=== PATIENT | male | born 1930 | race Caucasian/White ===

== ENCOUNTER 2018-04-09 20:39 | Inpatient (IN) ==
--- NOTE | 2018-04-09 21:16 | Emergency Department Note ---
Disposition Clinical Impression: Sepsis Qualifiers: Sepsis type: sepsis due to unspecified organism Qualified Code(s): A41.9 - Sepsis, unspecified organism Pneumonia Qualifiers: Pneumonia type: due to unspecified organism Laterality: unspecified laterality Lung location: unspecified part of lung Qualified Code(s): J18.9 - Pneumonia, unspecified organism Leukocytosis Qualifiers: Leukocytosis type: unspecified Qualified Code(s): D72.829 - Elevated white blood cell count, unspecified Disposition: Admitted As Inpatient Condition: Fair [facility] Care Provider[facility] - Forms: ED Satisfaction Letter General Adult HPI - General Chief complaint: ED Shortness of Breath/Dyspnea Stated complaint: COPD rule out Sepsis Time Seen by Provider: 04/09/18 20:41 Source: EMS Mode of arrival: EMS Limitations: physical limitation, age Nursing Notes Reviewed: Yes Vital Signs Reviewed: Yes - History of Present Illness HPI Narrative: 88-year-old male 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 Reports 2 days of symptoms with cough and productive sputum. He was seen there noted to be tachycardic and febrile. His blood pressure was running on the lower sides he was sent here for evaluation. He reports he was last admitted in October for complications of COPD. He denies any chest pain. No history of DVT or PE. No recent steroid use. He reports fevers and chills at home. No other complaints. Pt Subjective Complaint: Sepsis Onset (ago): day(s) Pain Scale: 0 Consistency: constant Improves with: nothing Worsens with: nothing Associated symptoms: Reports: cough, fever/chills, shortness of breath Treatments Prior to Arrival: other (IV fluids, antibiotics) - Related Data Allergies Allergy/AdvReac Type Severity Reaction Status Date / Time Amoxicillin [From Augmentin] Allergy Unknown See Verified 04/09/18 21:10 Comments cefuroxime Allergy Unknown See Verified 04/09/18 21:10 Comments clavulanic acid Allergy Unknown See Verified 04/09/18 21:10 [From Augmentin] Comments ciprofloxacin [From Cipro] Allergy See Verified 04/09/18 21:10 Comments All systems ED: reviewed and negative except as stated. Constitutional: Reports: fever, chills, weakness Cardiovascular: Denies: chest pain Respiratory: Reports: cough, dyspnea, sputum production Gastrointestinal: Denies: nausea, vomiting Past Medical History - Past Medical History Attestation: Yes The following information was validated with the patient. Source: patient Medical history: Reports: arthritis, COPD, hyperlipidemia, TIA Psychiatric history: Reports: no psych history - Social History Smoking Status: Former smoker Smokeless Tobacco Status: No Alcohol use: Reports: none Drug use: Reports: none Physical Exam - General Limitations: physical limitation, age General appearance: alert, in no apparent distress - Head Head exam: atraumatic, normocephalic - Eye Eye exam: Present: normal appearance - ENT ENT exam: normal exam - Neck Neck exam: Present: normal inspection - Chest Chest inspection: Present: normal inspection, symmetric chest wall rise - Respiratory Respiratory exam: Present: other (Diminished breath sounds bilaterally) - Cardiovascular Cardiovascular exam: Present: normal rhythm, tachycardia, normal heart sounds - Abdominal Exam Abdominal exam: Present: soft, Non-Tender. Absent: tenderness, distention, rigidity - Extremities Exam Extremities exam: Present: normal inspection, full ROM - Expanded Upper Extremity Exam Shoulder exam: Present: normal inspection, full ROM Arm exam: Present: normal inspection, full ROM Elbow exam: Present: normal inspection, full ROM Forearm/Wrist exam: Present: normal inspection, full ROM Hand exam: Present: normal inspection, full ROM - Expanded Lower Extremity Exam Hip/Pelvis exam: Present: normal inspection, full ROM Upper leg exam: Present: normal inspection, full ROM Knee exam: Present: normal inspection, full ROM Lower leg exam: Present: normal inspection, full ROM Ankle exam: Present: normal inspection, full ROM Foot/toe exam: Present: normal inspection, full ROM - Skin Skin exam: Present: warm, dry Course Course Narrative: Patient seen and examined. Vital signs reviewed. Prior workup demonstrates a white count of 19, creatinine of 1.56. He was febrile there are 101.8 given Tylenol. He was also given Solu-Medrol, DuoNeb, IV fluid bolus as well as Zithromax. - Reevaluation(s) Reevaluation #1: Patient refuses to have CTA performed. We offered BiPAP as well as Ativan. He is adamant that he does not want to have a CT scan performed. Discussed that he could have a pulmonary embolism and that is what we are evaluating. We will also offer that he could be started on heparin and have a VQ scan later. The patient is agreeable with starting on heparin at this time. Vital Signs Temperature 98.7 F 04/09/18 20:58 Pulse Rate 101 04/09/18 20:58 Respiratory Rate 20 04/09/18 20:58 Blood Pressure 101/59 04/09/18 20:58 O2 Sat by Pulse Oximetry 93 04/09/18 20:58 Temperature 98.7 F 04/09/18 20:58 Pulse Rate 88 04/09/18 22:00 Respiratory Rate 20 04/09/18 22:00 Blood Pressure 113/52 04/09/18 22:00 O2 Sat by Pulse Oximetry 96 04/09/18 22:00 Oxygen Delivery Oxygen Delivery Nasal Cannula Medical Decision Making - MDM Narrative Medical decision making narrative: 88-year-old male presents from the [place] due to sepsis. Symptoms for a few days. Fluid responsive. Mentating appropriately. Source is likely pulmonary. However cannot exclude pulmonary embolism given his increased oxygen requirement and exam findings. The patient refused CT imaging. He will be heparinized in lieu of imaging at this time with VQ scan in the morning. Broad- spectrum antibiotic coverage with cultures pending. - Medical Records Medical records reviewed: Yes I reviewed the patient's medical records. - Lab Data Lab results reviewed: Yes I reviewed the patient's lab results. Result diagrams: 04/09/18 21:34 04/09/18 21:34 Lab Results 04/09/18 04/09/18 04/09/18 Range/Units 21:26 21:34 21:34 WBC 18.8 H (4.3-11.1) K/mcL RBC 4.37 (4.19-5.50) M/mcL Hgb 13.0 (12.9-16.9) g/dL Hct 40.5 (37.5-50.1) % MCV 92.7 (83.0-100.0) fL MCH 29.7 (28.0-33.3) pg MCHC 32.1 (31.6-35.5) g/dL RDW 12.8 (11.5-14.5) % Plt Count 239 (140-400) K/mcL MPV 10.2 (9.4-12.4) fL Immature Gran % 0.7 (0-4) % Seg Neutrophils % 96.0 % Lymphocytes % 1.3 % Monocytes % 1.8 % Eosinophils % 0.0 % Basophils % 0.2 % Neutrophils # 18.0 H (1.6-8.9) K/mcL Lymphocytes # 0.2 L (0.6-4.6) K/mcL Monocytes # 0.3 (0.0-1.3) K/mcL Eosinophils # 0.0 (0.0-0.6) K/mcL Basophils # 0.0 (0.0-0.2) K/mcL PT 12.2 H (9.4-12.1) Seconds INR 1.1 APTT 32.4 (26.0-36.0) Seconds Sodium (136-145) mEq/L Potassium (3.5-5.1) mEq/L Chloride (98-107) mEq/L Carbon Dioxide (23-29) mEq/L BUN (8-23) mg/dL Creatinine (0.70-1.30) mg/dL Est GFR ( Amer) (> 60) Est GFR (Non-Af Amer) (> 60) BUN/Creatinine Ratio (6-26) Glucose (70-105) mg/dL Calculated Osmolality (280-300) Lactic Acid 1.7 (0.5-2.2) mmol/L Calcium (8.6-10.3) mg/dL Phosphorus (2.7-4.5) mg/dL Magnesium (1.6-2.6) mg/dL Total Bilirubin (0.3-1.0) mg/dL Direct Bilirubin (0.0-0.2) mg/dL Indirect Bilirubin (0.0-1.2) mg/dL AST (13-39) Units/L ALT (7-52) Units/L Alkaline Phosphatase (34-104) Units/L Troponin I (< 0.04) ng/mL Serum Total Protein (6.4-8.9) g/dL Albumin (3.5-5.7) g/dL Globulin (2.4-3.5) g/dL Albumin/Globulin Ratio (1.1-2.2) 04/09/18 Range/Units 21:34 WBC (4.3-11.1) K/mcL RBC (4.19-5.50) M/mcL Hgb (12.9-16.9) g/dL Hct (37.5-50.1) % MCV (83.0-100.0) fL MCH (28.0-33.3) pg MCHC (31.6-35.5) g/dL RDW (11.5-14.5) % Plt Count (140-400) K/mcL MPV (9.4-12.4) fL Immature Gran % (0-4) % Seg Neutrophils % % Lymphocytes % % Monocytes % % Eosinophils % % Basophils % % Neutrophils # (1.6-8.9) K/mcL Lymphocytes # (0.6-4.6) K/mcL Monocytes # (0.0-1.3) K/mcL Eosinophils # (0.0-0.6) K/mcL Basophils # (0.0-0.2) K/mcL PT (9.4-12.1) Seconds INR APTT (26.0-36.0) Seconds Sodium 137 (136-145) mEq/L Potassium 4.6 (3.5-5.1) mEq/L Chloride 101 (98-107) mEq/L Carbon Dioxide 28 (23-29) mEq/L BUN 27 H (8-23) mg/dL Creatinine 1.41 H (0.70-1.30) mg/dL Est GFR ( Amer) 58 L (> 60) Est GFR (Non-Af Amer) 48 L (> 60) BUN/Creatinine Ratio 19 (6-26) Glucose 189 H (70-105) mg/dL Calculated Osmolality 294 (280-300) Lactic Acid (0.5-2.2) mmol/L Calcium 9.0 (8.6-10.3) mg/dL Phosphorus 2.5 L (2.7-4.5) mg/dL Magnesium 2.4 (1.6-2.6) mg/dL Total Bilirubin 0.5 (0.3-1.0) mg/dL Direct Bilirubin 0.2 (0.0-0.2) mg/dL Indirect Bilirubin 0.3 (0.0-1.2) mg/dL AST 14 (13-39) Units/L ALT 3 L (7-52) Units/L Alkaline Phosphatase 62 (34-104) Units/L Troponin I < 0.03 (< 0.04) ng/mL Serum Total Protein 6.9 (6.4-8.9) g/dL Albumin 3.7 (3.5-5.7) g/dL Globulin 3.2 (2.4-3.5) g/dL Albumin/Globulin Ratio 1.2 (1.1-2.2) - Radiology Data Radiology results reviewed: Yes I reviewed the patient's radiology results. - EKG Data EKG #1 EKG attestation: Yes I reviewed and interpreted this EKG. EKG results narrative: EKG demonstrates sinus rhythm with right bundle branch block with rate of 96 bpm. Normal axis. Prolonged QRS ration 144. Other intervals normal. Normal R -wave progression. No gross ST elevations or depressions. No acute ischemic findings. S.B.A.R. - S.B.A.REstee Situation: Demographics, MOA Background: Presenting Complaint, Relevant PMH, Meds, & Allergies Assessment: Vital Signs, Course and respsone to treatment, Exam Concerns, Patient/Family Expectation, Pertinant Lab Results, Outstanding Labs Recommendation: Barrier(s) to disposition, Recommendation based on pending studies, treatments, or consults S.B.A.REstee Report Given to: Dr. Tj AlvarezBEsteeADaniela Repor Time: 22:35 (Agrees that if the patient will not oblige for CT scan we can start heparin now and VQ scan in the morning.) Attestation Statement - Attestation Attestation: I examined this patient and my medical decision-making was reviewed with the Resident Physician. I agree with the documented findings, disposition and treatment plan as described except to the extent set forth below. Fever, hypotension, [facility] and underlying [facility]. They did start azithromycin. The patient does not hypotension, tachycardia, hypoxia. He has not had symptoms like he has had with his past pneumonia and [facility] was [facility]. I would at this point proceed with a CT angiography of the chest to exclude the possibility of pulmonary embolism which can sometimes have fever. Additionally I will like to rule out this out as the patient has respiratory alkalosis with low PaO2 and no evidence of abnormality on chest x-ray despite respiratory symptoms. The patient will be admitted for further management with initiation of broad- spectrum antibiotics I spent greater than 35 minutes of critical care time resuscitating this acutely ill patient suffering from dyspnea, hypotension, possible sepsis. This was excluding billable procedures.
[2018-04-09] MEDS ORDERED: Piperacillin/Tazobactam 3.375 GM in 0.9 % Sodium Chloride Mini Bag 100 ML IVPB ONE (21:20)
[2018-04-09] MEDS ORDERED: Isovue-370 500 ML INFUS..BTL IV ONE (21:29)
[2018-04-09 21:53] LABS: Basophils % 0.2 %; Hematocrit 40.5 % (37.5-50.1); Immature Granulocytes % 0.7 % (0-4); Lymphocytes # 0.2 K/mcL (0.6-4.6); Lymphocytes % 1.3 %; Mean Corpuscular HGB Conc 32.1 g/dL (31.6-35.5); Mean Corpuscular Hemoglobin 29.7 pg (28.0-33.3); Mean Corpuscular Volume 92.7 fL (83.0-100.0); Mean Platelet Volume 10.2 fL (9.4-12.4); Monocytes # 0.3 K/mcL (0.0-1.3); Monocytes % 1.8 %; Platelet Count 239 K/mcL (140-400); Red Blood Count 4.37 M/mcL (4.19-5.50); Red Cell Distribution Width 12.8 % (11.5-14.5)
[2018-04-09 21:56] LABS: INR 1.1; Prothrombin Time 12.2 Seconds (9.4-12.1)
[2018-04-09 21:59] LABS: Activated Partial Thrombo Time 32.4 Seconds (26.0-36.0)
[2018-04-09 22:09] LABS: Alanine Aminotransferase 3 Units/L (7-52); Albumin 3.7 g/dL (3.5-5.7); Albumin/Globulin Ratio 1.2 (1.1-2.2); Alkaline Phosphatase 62 Units/L (34-104); Aspartate Amino Transferase 14 Units/L (13-39); BUN/Creatinine Ratio 19 (6-26); Bilirubin,Direct 0.2 mg/dL (0.0-0.2); Bilirubin,Indirect 0.3 mg/dL (0.0-1.2); Bilirubin,Total 0.5 mg/dL (0.3-1.0); Blood Urea Nitrogen 27 mg/dL (8-23); Carbon Dioxide 28 mEq/L (23-29); Chloride 101 mEq/L (98-107); Globulin 3.2 g/dL (2.4-3.5); Glucose 189 mg/dL (70-105); Magnesium 2.4 mg/dL (1.6-2.6); Osmolality,Calculated 294 (280-300); Phosphorous 2.5 mg/dL (2.7-4.5); Potassium 4.6 mEq/L (3.5-5.1); Sodium 137 mEq/L (136-145); Total Protein 6.9 g/dL (6.4-8.9); Troponin I < 0.03 ng/mL (< 0.04); eGFR For Non-African Americans 48 (> 60)
[2018-04-09] MEDS ORDERED: *HR* Heparin 5,000 UNIT/ML VIAL IVP PRN ×2 (22:33)
[2018-04-09] MEDS ORDERED: *HR* Heparin 5,000 UNIT/ML VIAL IVP ONE (22:33)
[2018-04-09] MEDS ORDERED: Heparin 25,000 UNIT/500 ML D5W 25,000 UNIT/500 ML BAG IVC SCH (22:45)
[2018-04-09] MEDS ORDERED: 0.9 % Sodium Chloride 1,000 ML IVC SCH (23:45)
[2018-04-09] MEDS ORDERED: Naloxone 0.4 MG/ML INJ IVP PRN (23:53)
--- NOTE | 2018-04-10 00:26 | Internal Med History&Physical ---
Date of Encounter: 04/09/18 Time of Encounter: 23:45 Internal Medicine - H&P: HPI Chief complaint: SOB History of present illness: Mr. Hu is a 88 year old male with past medical history of oxygen dependent COPD, TIA, hyperlipidemia, presented to the outside hospital ED with 2 day history of shortness of breath. Associated with mild cough with brownish sputum. He states that he also had fever of 102 at home prior to the presentation. He was first seen at the [facility] and was told that he was febrile and hypotensive. CXR there did not show any acute pathology and ABG showed hypoxia and respiratory alkalosis (don't have the documents to be reviewed at the time of my interview). He was apparently given azithromycin and transferred to the [facility] emergency department. In our ED, he was afebrile and hemodynamically stable, saturating 96% on 3 L of oxygen. Labs showed leukocytosis of 18.8 and creatinine of 1.41 (unknown baseline). Troponin negative, EKG sinus rhythm with right bundle branch block without ST elevation. When he was examined here, he did not have any wheezes and had good air entry bilaterally. Given the lack of wheezing on exam nor consolidation on CXR, in addition to hypoxia and respiratory alkalosis, CT angio was suggested to rule out PE but patient could not tolerate it due to his inability to lay flat due to SOB (which is not new). He therefore refused it and the decision was made to empirically start him on heparin gtt and maybe obtain VQ scan. Past Med Surg Social Fam HX - Past Medical History Attestation: Yes The following information was validated with the patient. Medical history: arthritis, COPD, hyperlipidemia Additional medical history: Pulmonary Htn, BPH, Right BBB Psychiatric history: no psych history - Social History Smoking Status: Former smoker Smokeless Tobacco Status: No Alcohol use: none Drug use: none Internal Medicine - H&P: Meds 3 Allergy/AdvReac Type Severity Reaction Status Date / Time Amoxicillin [From Augmentin] Allergy Unknown See Verified 04/09/18 21:10 Comments cefuroxime Allergy Unknown See Verified 04/09/18 21:10 Comments clavulanic acid Allergy Unknown See Verified 04/09/18 21:10 [From Augmentin] Comments ciprofloxacin [From Cipro] Allergy See Verified 04/09/18 21:10 Comments All Systems PM: A 10-system review of systems was performed and is negative for pertinent findings except as documented above in the HPI. - Constitutional Vitals: Temp Pulse Resp BP Pulse Ox 98.7 F 84 20 121/64 97 04/09/18 20:58 04/09/18 23:32 04/09/18 23:32 04/09/18 23:32 04/09/18 23:32 Exam: General: Alert and oriented, mild distress HEENT:EOM, pupils equal, round, and reactive. Cardiovascular:Normal S1 & S2, no murmurs or gallops. No JVD. Pulse regular. Lungs:Normal breath sounds, no wheezes or crackles. Abdomen:Soft, non-tender, no rigidity. Extremities:No deformity, no edema or tenderness, no joint swelling. Neurological:Normal cognition and motor skills. Skin:Normal color, no rash, no lesions. Pulses:Carotid and radial pulses normal +2. Rest of the physical exam is non-contributory Internal Med - H&P Results - Labs CBC & Chem 7: 04/09/18 21:34 04/09/18 21:34 - Assessment and plan (1) Acute respiratory failure with hypoxia Current Visit: Yes Status: Acute Assessment and plan: Etiology unclear X-ray did not show any evidence of pneumonia, no wheezing on physical exam. ABG at the outside hospital reportedly showed hypoxia with respiratory alkalosis (not available for review) Was given azithromycin at the outside hospital ED followed by Miguel Angel here Refused CT scan due to inability to lay flat. He also has VITALIY, if not CKD WIll try to obtain the record from [place] -> if not available, will at least repeat CXR Started on heparin drip in the ER, will continue VQ scan and echocardiogram tomorrow Further abx course to be decided tomorrow depending on his clinical response (2) VITALIY (acute kidney injury) Current Visit: Yes Status: Acute Assessment and plan: Unclear whether he has VITALIY or CKD IVF tonight (3) COPD (chronic obstructive pulmonary disease) Current Visit: Yes Status: Acute Assessment and plan: Does not seem to be in exacerbation. He states that he usually presents with cough and yellowish-greenish sputum production which was different this time Resume home inhalers when reconciled when necessary DuoNeb Qualifiers: COPD type: unspecified COPD Qualified Code(s): J44.9 - Chronic obstructive pulmonary disease, unspecified (4) DVT prophylaxis Current Visit: Yes Status: Acute Assessment and plan: On heparin drip as above - Time Spent With Patient Total time spent is greater than 50% in coordination of care (as documented) at patient's floor/unit and/or counseling patient:
[2018-04-10] MEDS: Ipratropium/Albuterol Neb 3 ML IH PRN ×2 (00:53→07:46)
[2018-04-10 03:04] LABS: Bilirubin,Urine Negative (Negative); Blood,Urine Negative (Negative); Clarity,Urine Clear (Clear); Color,Urine Yellow (Yellow); Glucose,Urine (UA) Normal (Normal); Ketones,Urine 40 mg/dL (Negative); Leukocyte Esterase,Urine Negative (Negative); Nitrite,Urine Negative (Negative); Protein,Urine 30 mg/dL (Neg-Trace); Specific Gravity,Urine 1.025 (1.010-1.025); Urobilinogen,Urine Normal (Normal)
[2018-04-10 03:05] LABS: Bacteria,Urine None Seen per hpf (None-Few); Hyaline Casts,Urine None Seen per lpf (None-Few); Squamous Epithelial Cell,Urine Moderate per lpf (None-Few); WBC,Urine 0-3 per hpf (0-3)
[2018-04-10] MEDS ORDERED: Melatonin 3 MG TABLET PO ONE (04:04)
[2018-04-10 04:47] LABS: Basophils % 0.1 %; Hemoglobin 12.5 g/dL (12.9-16.9); Immature Granulocytes % 0.6 % (0-4); Lymphocytes # 0.5 K/mcL (0.6-4.6); Lymphocytes % 3.7 %; Mean Corpuscular HGB Conc 32.1 g/dL (31.6-35.5); Mean Corpuscular Hemoglobin 29.8 pg (28.0-33.3); Mean Corpuscular Volume 92.9 fL (83.0-100.0); Mean Platelet Volume 10.3 fL (9.4-12.4); Monocytes # 0.2 K/mcL (0.0-1.3); Monocytes % 1.1 %; Neutrophils # 13.2 K/mcL (1.6-8.9); Platelet Count 249 K/mcL (140-400); Red Cell Distribution Width 12.9 % (11.5-14.5); Segmented Neutrophils % 94.5 %
[2018-04-10 05:09] LABS: BUN/Creatinine Ratio 21 (6-26); Blood Urea Nitrogen 24 mg/dL (8-23); Calcium 8.8 mg/dL (8.6-10.3); Carbon Dioxide 29 mEq/L (23-29); Chloride 100 mEq/L (98-107); Glucose 168 mg/dL (70-105); Osmolality,Calculated 290 (280-300); Potassium 4.3 mEq/L (3.5-5.1); Sodium 136 mEq/L (136-145); eGFR For Non-African Americans > 60 (> 60)
[2018-04-10] MEDS: Tiotropium 18 MCG inhalation IH SCH ×2 (07:46→07:59)
[2018-04-10] MEDS: Budesonide/Formoterol 160/4.5 MDI IH SCH ×2 (07:46→20:55)
[2018-04-10] MEDS ORDERED: Piperacillin/Tazobactam 3.375 GM in 0.9 % Sodium Chloride Mini Bag 100 ML IVPB SCH (08:00)
[2018-04-10] MEDS ORDERED: GI Cocktail 40 ML EACH PO STA (09:33)
[2018-04-10] MEDS ORDERED: Ipratropium/Albuterol Neb 3 ML IH STA (09:37)
[2018-04-10] MEDS ORDERED: Albuterol 2.5 MG/3 ML NEBULIZER IH PRN (09:39)
[2018-04-10] MEDS ORDERED: Acetylcysteine 10% 2 ML INHSOL IH SCH (09:45)
[2018-04-10] MEDS ORDERED: Famotidine 20 MG TABLET PO SCH (09:45)
[2018-04-10] MEDS: Cholecalciferol (D-3) 1,000 UNIT TABLET PO SCH (09:50)
[2018-04-10] MEDS: Finasteride 5 MG TABLET PO SCH (09:50)
[2018-04-10] MEDS: Aspirin Enteric Coated 81 MG Tablet PO SCH (09:50)
[2018-04-10] MEDS: [UNRECOGNIZED DRUG - OTHER] PO SCH ×3 (09:54→21:55)
[2018-04-10] MEDS: Loratadine 10 MG TABLET PO SCH (10:36)
[2018-04-10] MEDS: Ipratropium/Albuterol Neb 3 ML IH SCH ×3 (11:29→20:54)
[2018-04-10] MEDS: Acetylcysteine 10% 2 ML INHSOL IH SCH ×2 (15:47→20:55)
--- NOTE | 2018-04-10 16:31 | Electrocardiograph Report ---
[place] [address] Test Date: 2018-04-09 Pat Name: Dru Hu Department: 104 Room: [facility] Gender: M Mason Helper: ROSANGELA : 1930 Requested By: Robert Jameson Order Number: [id number] Reading MD: Echo Pelaez Measurements Intervals [place] Rate: 96 P: 33 NM: 162 QRS: 82 QRSD: 144 T: 41 QT: 362 QTc: 415 Interpretive Statements SINUS RHYTHM WITH OCCASIONAL SUPRAVENTRICULAR PREMATURE COMPLEXES RIGHT BUNDLE BRANCH BLOCK Electronically Signed On 04-10-2018 16:29:16 EDT by Echo Pelaez
[2018-04-10] MEDS ORDERED: Azithromycin 500 MG in D5% in Water 250 ML IVPB SCH (17:00)
[2018-04-10] MEDS ORDERED: GI Cocktail 40 ML EACH PO PRN (17:35)
--- NOTE | 2018-04-10 17:42 | Internal Med Progress Note ---
Hospitalist Progress Note - Encounter Date of Encounter: 04/10/18 Time of Encounter: 17:39 - Subjective Interval History: Patient had no acute events overnight. Nursing staff reports that he is coughing up phlegm better now. Patient states that his breathing is "much better." He is now back down to home supplemental oxygen 2L NC. He denies any fever, chills, chest pain, SOB, nausea, vomiting, or abdominal pain. He had some minor heartburn after eating ziegler from breakfast, but it is now better with famotidine and GI cocktail. He has no other complaints at this time. - Exam Vitals: Temp Pulse Resp BP Pulse Ox 97.8 F 83 16 121/58 95 04/10/18 15:27 04/10/18 15:27 04/10/18 15:49 04/10/18 15:27 04/10/18 15:49 Exam: Gen - Awake, alert, no acute distress HEENT - NCAT, PERRLA, EOMI, hearing grossly intact, oropharynx benign CV - RRR, normal S1 and S2, no M/R/G, no BLE edema Resp - Normal WOB, CTAB, no W/R/R GI - Soft, NT/ND, no masses, normal bowel sounds, no HSP Skin - Warm, dry, no rashes/lesions/ulcers Psych - Normal mood and affect, no depression or anxiety - Assessment and Plan (1) Acute respiratory failure with hypoxia Current Visit: Yes Status: Resolved Assessment and Plan: Etiology unclear X-ray did not show any evidence of pneumonia, no wheezing on physical exam. ABG at the outside hospital reportedly showed hypoxia with respiratory alkalosis (not available for review) Was given azithromycin at the outside hospital ED followed by Miguel Angel here Refused CT scan due to inability to lay flat. He also has VITALIY, if not CKD WIll try to obtain the record from [place] -> if not available, will at least repeat CXR Started on heparin drip in the ER, will continue VQ scan and echocardiogram tomorrow Further abx course to be decided tomorrow depending on his clinical response 04/10 - Acute respiratory failure resolved. Now back to home supplemental oxygen 2L NC for chronic respiratory failure. Likely secondary to pneumonia. Treating pneumonia with antibiotics as per below. Patient declines V/Q scan and ECHO as he is unable to lie flat. My suspicion for PE is low, so will discontinue heparin drip and see how he does overnight. If WBC continues to trend down, and he improves overnight with antibiotics and without anticoagulation, will plan to discharge home tomorrow with PO antibiotic course. I have consulted pharmacy to help determine PO antibiotic course given patient's multiple antibiotic allergies. (2) Pneumonia Current Visit: Yes Status: Acute Assessment and Plan: Continue IV azithromycin and IV zosyn. Added guaifenesin, claritin, and inhaled mucomyst to help with expectoration. Pharmacy consulted to help determine appropriate discharge antibiotics. (3) VITALIY (acute kidney injury) Current Visit: Yes Status: Resolved Assessment and Plan: Unclear whether he has VITALIY or CKD IVF tonight 04/10 - Resolved. Discontinue IVF. Encourage adequate PO hydration. Recheck BMP in AM. (4) COPD (chronic obstructive pulmonary disease) Current Visit: Yes Status: Chronic Assessment and Plan: Does not seem to be in exacerbation. He states that he usually presents with cough and yellowish-greenish sputum production which was different this time Resume home inhalers when reconciled when necessary DuoNeb 04/10 - I agree that he is not in acute exacerbation. Continue scheduled duonebs and home inhalers. (5) Heartburn Current Visit: Yes Status: Acute Assessment and Plan: Start famotidine scheduled and GI cocktail PRN. (6) DVT prophylaxis Current Visit: Yes Status: Acute Assessment and Plan: Discontinue heparin drip. Start SCDs and lovenox 40 mg SQ QD. - Time Spent with Patient Total time spent is greater than 50% in coordination of care (as documented) at patient's floor/unit and/or counseling patient: less than 15 minutes Plan of Care Discussed with: patient (Family, Nurse) Internal Medicine: Result - Labs CBC & Chem 7: 04/10/18 04:13 04/10/18 04:13 - ABG Interpretation ABG results: PT/INR, D-dimer PT 12.2 Seconds (9.4-12.1) H 04/09/18 21:34 Consult Discharge Plan - Plan [facility]errals: [facility] [Primary Care Provider] - (2) Pneumonia Qualifiers: Pneumonia type: due to unspecified organism Laterality: unspecified laterality Lung location: unspecified part of lung Qualified Code(s): J18.9 - Pneumonia, unspecified organism (4) COPD (chronic obstructive pulmonary disease) Qualifiers: COPD type: unspecified COPD Qualified Code(s): J44.9 - Chronic obstructive pulmonary disease, unspecified
[2018-04-10] MEDS: Piperacillin/Tazobactam 3.375 GM in 0.9 % Sodium Chloride Mini Bag 100 ML IVPB SCH (18:11)
[2018-04-10] MEDS: Famotidine 20 MG TABLET PO SCH (21:55)
[2018-04-11] MEDS: Piperacillin/Tazobactam 3.375 GM in 0.9 % Sodium Chloride Mini Bag 100 ML IVPB SCH (02:44)
[2018-04-11] MEDS: Acetylcysteine 10% 2 ML INHSOL IH SCH ×2 (03:46→10:57)
[2018-04-11] MEDS: Ipratropium/Albuterol Neb 3 ML IH SCH ×2 (03:46→10:57)
[2018-04-11 05:32] LABS: Basophils % 0.1 %; Eosinophils % 0.2 %; Hemoglobin 11.7 g/dL (12.9-16.9); Immature Granulocytes % 0.6 % (0-4); Lymphocytes # 1.2 K/mcL (0.6-4.6); Lymphocytes % 10.5 %; Mean Corpuscular HGB Conc 32.5 g/dL (31.6-35.5); Mean Corpuscular Hemoglobin 29.8 pg (28.0-33.3); Mean Corpuscular Volume 91.6 fL (83.0-100.0); Mean Platelet Volume 10.2 fL (9.4-12.4); Monocytes # 0.8 K/mcL (0.0-1.3); Monocytes % 7.1 %; Platelet Count 281 K/mcL (140-400); Red Blood Count 3.93 M/mcL (4.19-5.50); Red Cell Distribution Width 12.7 % (11.5-14.5); Segmented Neutrophils % 81.5 %
[2018-04-11] MEDS: *HR* Enoxaparin 40 MG/0.4 ML SYRINGE SQ SCH ×2 (05:46→05:52)
[2018-04-11 05:47] LABS: BUN/Creatinine Ratio 24 (6-26); Blood Urea Nitrogen 21 mg/dL (8-23); Calcium 8.6 mg/dL (8.6-10.3); Carbon Dioxide 28 mEq/L (23-29); Chloride 102 mEq/L (98-107); Glucose 102 mg/dL (70-105); Osmolality,Calculated 285 (280-300); Potassium 4.3 mEq/L (3.5-5.1); Sodium 136 mEq/L (136-145); eGFR For Non-African Americans > 60 (> 60)
[2018-04-11 07:29] VITALS: BP 100/60
--- NOTE | 2018-04-11 09:21 | Discharge Summary ---
- NOTES TO OUTPATIENT PROVIDER Notes to Outpatient Provider: Follow up with PCP in 2-3 days after discharge. Recheck BMP and CBC at that time. Date of Encounter: 04/11/18 Time of Encounter: 09:18 - Discharge Diagnosis (1) Acute respiratory failure with hypoxia Priority: Primary Status: Resolved (2) Pneumonia Priority: Secondary Status: Acute Qualifiers: Pneumonia type: due to unspecified organism Laterality: unspecified laterality Lung location: unspecified part of lung Qualified Code(s): J18.9 - Pneumonia, unspecified organism (3) VITALIY (acute kidney injury) Priority: Secondary Status: Resolved (4) COPD (chronic obstructive pulmonary disease) Priority: Secondary Status: Chronic Qualifiers: COPD type: unspecified COPD Qualified Code(s): J44.9 - Chronic obstructive pulmonary disease, unspecified (5) Heartburn Priority: Secondary Status: Acute (6) DVT prophylaxis Priority: Secondary Status: Acute Hospital course: Mr. Hu is a 88 year old male admitted for acute on chronic respiratory failure likely secondary to pneumonia. Patient was admitted to general medical floor with telemetry. He was started on IV azithromycin and IV zosyn due to multiple antibiotic allergies. He was given claritin, guaifenesin, and inhaled mucomyst to aid expectoration. His condition improved overnight and he was weaned to home 2L NC. Pharmacist recommended discharge on azithromycin and bactrim SS for total 7 days. He had mild VITALIY upon admission that resolved with IVF. He had some mild heartburn that resolved with famotidine and GI cocktail. Today, he feels much better. He will follow up with PCP in 2-3 days after discharge. BMP and CBC can be rechecked at that time. Patient has met maximum benefit of this hospitalization and will be discharged home in stable condition. Discharge discussed with: patient, nurse, other (Pharmacist) - Time Spent with Patient Total time spent providing and/or coordinating discharge services: Greater than 30 minutes - Discharge Medications Prescriptions: Azithromycin [Zithromax Tri-Rudy] 500 mg PO DAILY 5 Days #5 tablet GuaiFENesin ER [Mucinex] 1,200 mg PO BID 7 Days #14 tbbp.12hr Loratadine [Claritin] 10 mg PO DAILY 7 Days #7 tablet Sulfamethoxazole/Trimeth SS [Bactrim SS] 1 each PO BID 6 Days #11 tablet Home Medications: Albuterol Neb [Proventil Neb] 2.5 mg IH Q4HR PRN 04/10/18 [History] Albuterol Sulfate [Albuterol Inhaler] 2 puff IH Q6HR PRN 04/10/18 [History] Aloe Vera 10,000 mg PO BID 04/10/18 [History] Aspirin [Lo-Dose Aspirin EC] 81 mg PO DAILY 04/10/18 [History] Budesonide/Formoterol 160/4.5 [Symbicort 160/4.5] 2 puff IH BIDR 04/10/18 [ History] Calcium Carbonate [Calcium] 500 mg PO BID 04/10/18 [History] Calcium Carbonate [Calcium] 500 mg PO BID PRN 04/10/18 [History] Cholecalciferol (D-3) [Vitamin D] 5,000 unit PO DAILY 04/10/18 [History] Finasteride [Proscar] 5 mg PO DAILY 04/10/18 [History] Furosemide [Lasix] 20 mg PO DAILY 04/10/18 [History] Lung Support 650 mg PO TID 04/10/18 [History] Potassium Chloride [K-Tab ER] 20 meq PO DAILY 04/10/18 [History] Prostate 9 Complex 1 tab PO DAILY 04/10/18 [History] Sodium Chloride for inhalation [Sodium Chloride, Saline 15 Ml 15 Ml] 2 spr NS TID 04/10/18 [History] Tamsulosin [Flomax] 0.4 mg PO DAILY 04/10/18 [History] Tiotropium [Spiriva] 18 mcg IH 0700 04/10/18 [History] Vitamin E Acid Succinate [Vitamin E] 400 units PO DAILY 04/10/18 [History] Azithromycin [Zithromax Tri-Rudy] 500 mg PO DAILY 5 Days #5 tablet 04/11/18 [Rx] GuaiFENesin ER [Mucinex] 1,200 mg PO BID 7 Days #14 tbbp.12hr 04/11/18 [Rx] Loratadine [Claritin] 10 mg PO DAILY 7 Days #7 tablet 04/11/18 [Rx] Sulfamethoxazole/Trimeth SS [Bactrim SS] 1 each PO BID 6 Days #11 tablet [Rx] Allergies/Adverse Reactions: 3 Allergy/AdvReac Type Severity Reaction Status Date / Time Amoxicillin [From Augmentin] Allergy Unknown See Verified 04/10/18 14:22 Comments cefuroxime Allergy Unknown See Verified 04/10/18 14:22 Comments clavulanic acid Allergy Unknown See Verified 04/10/18 14:22 [From Augmentin] Comments ciprofloxacin [From Cipro] Allergy See Verified 04/10/18 14:22 Comments Date of admission: 04/10/18 10:16 [facility] care physician: [facility] Consults: 04/11/18 08:11 Consult for Pharmacy Education [CONS] Stat Reason for Consult: Please call MD for antibiotic selection. Thanks. Call Completed: No Discharging clinician: Dawit Duggan Anticipated date of discharge: 04/11/18 - Constitutional Vitals: Temp Pulse Resp BP Pulse Ox 97.6 F 83 16 100/60 99 04/11/18 07:27 04/11/18 07:27 04/11/18 07:27 04/11/18 07:27 04/11/18 07:27 General appearance: Present: cooperative, A&O X 3, pleasant, no acute distress, obese, answers questions appropriately - Respiratory Respiratory exam: Present: CTAB. Absent: accessory muscle use, rales, rhonchi, wheezes Additional comments: Normal WOB - Cardiovascular Cardiovascular exam: Present: RRR, +S1, +S2. Absent: diastolic murmur, gallop, rubs, systolic murmur Additional comments: No BLE edema - GI/Abdominal GI/Abdominal exam: Present: normal bowel sounds, soft. Absent: distended, hepatomegaly, mass, splenomegaly, tenderness - Psychiatric Psychiatric exam: Present: normal affect, normal mood. Absent: agitated, anxious, depressed - Skin Skin exam: Present: dry, intact, warm. Absent: cyanosis, erythema, rash - Patient Status Disposition: Home, Self-Care Condition: Good Overall status at discharge: patient is progressing back to baseline - Discharge Instructions Follow Up With: [facility],PCP [Primary Care Provider] - Additional Instructions: Follow up with PCP in 2-3 days after discharge. Recheck BMP and CBC at that time. - Diet and Activity Activity: resume usual activities as tolerated Diet: low fat, low cholesterol, low salt diet, other (Cardiac Diet)
[2018-04-11] MEDS: Finasteride 5 MG TABLET PO SCH (09:58)
[2018-04-11] MEDS: Aspirin Enteric Coated 81 MG Tablet PO SCH (09:59)
[2018-04-11] MEDS: Cholecalciferol (D-3) 1,000 UNIT TABLET PO SCH (09:59)
[2018-04-11] MEDS: Loratadine 10 MG TABLET PO SCH (09:59)
[2018-04-11] MEDS: Famotidine 20 MG TABLET PO SCH (09:59)
[2018-04-11] MEDS: [UNRECOGNIZED DRUG - OTHER] PO SCH (10:00)
[2018-04-11] MEDS: Budesonide/Formoterol 160/4.5 MDI IH SCH (10:57)
[2018-04-11] MEDS: Tiotropium 18 MCG inhalation IH SCH (11:01)
== END 2018-04-11 12:09 | disposition home or self-care (01) | DRG 189 ==
LOC: EMEROO 20:39 → 2NENU 20:39 → MERGE 04-10 10:16
PROVIDERS: ADMIT Family Medicine; ATTEND Family Medicine

== ENCOUNTER 2018-07-26 13:32 | Inpatient (IN) ==
[2018-07-26] MEDS ORDERED: Nitroglycerin 0.4 MG TAB.SUBL SL ONE (13:39)
[2018-07-26] MEDS ORDERED: Aspirin 81 MG TAB.CHEW PO ONE (13:39)
--- NOTE | 2018-07-26 13:44 | Emergency Department Note ---
Disposition Clinical Impression: Non-ST elevation [place] (NSTEMI) Disposition: Admitted As Inpatient Condition: Good Referrals: [facility],PCP [Primary Care Provider] - Time of Disposition: 15:48 General Adult HPI - General Stated complaint: Elevated Troponin Time Seen by Provider: 07/26/18 13:39 Source: EMS Mode of arrival: EMS - History of Present Illness HPI Narrative: This is an 88-year-old male who had epigastric as well as midsternal chest pain starting about 20 hours prior to arrival that he ascribed to stomach upset from excessive eating. He was seen at the [place] [facility] this morning, and had an elevated troponin at 3.7. He was subsequently transported here for further evaluation and management. - Related Data Home Medications Medication Instructions Recorded Confirmed Albuterol Neb [Proventil Neb] 2.5 mg IH Q4HR PRN 04/10/18 04/10/18 Albuterol Sulfate [Albuterol 2 puff IH Q6HR PRN 04/10/18 04/10/18 Inhaler] Aloe Vera 10,000 mg PO BID 04/10/18 04/10/18 Aspirin [Lo-Dose Aspirin EC] 81 mg PO DAILY 04/10/18 04/10/18 Budesonide/Formoterol 160/4.5 2 puff IH BIDR 04/10/18 04/10/18 [Symbicort 160/4.5] Calcium Carbonate [Calcium] 500 mg PO BID 04/10/18 04/10/18 Calcium Carbonate [Calcium] 500 mg PO BID PRN 04/10/18 04/10/18 Cholecalciferol (D-3) [Vitamin D] 5,000 unit PO DAILY 04/10/18 04/10/18 Finasteride [Proscar] 5 mg PO DAILY 04/10/18 04/10/18 Furosemide [Lasix] 20 mg PO DAILY 04/10/18 04/10/18 Lung Support 650 mg PO TID 04/10/18 04/10/18 Potassium Chloride [K-Tab ER] 20 meq PO DAILY 04/10/18 04/10/18 Prostate 9 Complex 1 tab PO DAILY 04/10/18 04/10/18 Sodium Chloride for inhalation 2 spr NS TID 04/10/18 04/10/18 [Sodium Chloride, Saline 15 Ml 15 Ml] Tamsulosin [Flomax] 0.4 mg PO DAILY 04/10/18 04/10/18 Tiotropium [Spiriva] 18 mcg IH 0700 04/10/18 04/10/18 Vitamin E Acid Succinate [Vitamin 400 units PO DAILY 04/10/18 04/10/18 E] Previous Rx's Medication Instructions Recorded Azithromycin [Zithromax Tri-Rudy] 500 mg PO DAILY 5 Days #5 tablet 04/11/18 GuaiFENesin ER [Mucinex] 1,200 mg PO BID 7 Days #14 04/11/18 tbbp.12hr Loratadine [Claritin] 10 mg PO DAILY 7 Days #7 tablet 04/11/18 Sulfamethoxazole/Trimeth SS 1 each PO BID 6 Days #11 tablet 04/11/18 [Bactrim SS] Allergies Allergy/AdvReac Type Severity Reaction Status Date / Time Amoxicillin [From Augmentin] Allergy Unknown See Verified 04/10/18 14:22 Comments cefuroxime Allergy Unknown See Verified 04/10/18 14:22 Comments clavulanic acid Allergy Unknown See Verified 04/10/18 14:22 [From Augmentin] Comments ciprofloxacin [From Cipro] Allergy See Verified 04/10/18 14:22 Comments All systems ED: reviewed and negative except as stated. Cardiovascular: Reports: chest pain Respiratory: Reports: dyspnea Gastrointestinal: Reports: abdominal pain, nausea Past Medical History - Past Medical History Medical history: Reports: arthritis, hypertension, COPD Surgical history: Reports: appendectomy, tonsilectomy Psychiatric history: Reports: no psych history - Social History Smoking Status: Former smoker Smokeless Tobacco Status: No Alcohol use: Reports: none Drug use: Reports: none Physical Exam - General Limitations: no limitations General appearance: alert, in no apparent distress - Head Head exam: atraumatic, normocephalic, normal inspection - Eye Eye exam: Present: normal appearance, PERRL, EOMI - Chest Chest inspection: Present: normal inspection, symmetric chest wall rise - Respiratory Respiratory exam: Present: other (There are severely diminished breath sounds in all [place] with expiratory wheezes in the apices). Absent: respiratory distress - Cardiovascular Cardiovascular exam: Present: regular rate, normal rhythm, normal heart sounds - Abdominal Exam Abdominal exam: Present: soft, Non-Tender. Absent: tenderness, distention, guarding, rebound, rigidity - Extremities Exam Extremities exam: Present: normal inspection, pedal edema (Trace bilateral pedal edema) - Neurological Exam Neurological exam: Present: alert, oriented X3 - Psychiatric Psychiatric exam: Present: normal affect, normal mood - Skin Skin exam: Present: warm, dry, intact, normal color Course Course Narrative: This is an 88-year-old male with troponin elevation concerning for acute coronary syndrome. Vital Signs Temperature 98.1 F 07/26/18 13:37 Pulse Rate 100 07/26/18 13:37 Respiratory Rate 20 07/26/18 13:37 Blood Pressure 136/83 07/26/18 13:37 O2 Sat by Pulse Oximetry 98 07/26/18 13:37 Temperature 98.1 F 07/26/18 13:37 Pulse Rate 100 07/26/18 13:37 Respiratory Rate 20 07/26/18 13:37 Blood Pressure 136/83 07/26/18 13:37 O2 Sat by Pulse Oximetry 98 07/26/18 14:02 Oxygen Delivery Oxygen Delivery Nasal Cannula Medical Decision Making - MDM Narrative Medical decision making narrative: This is an 88-year-old male with elevated troponin and no changes on EKG. Most likely diagnosis is non-ST elevation AK He was given aspirin Heparin was started at the ACS dosage I discussed his case with the on-call hospitalist, who accepted him for admission - Lab Data Lab results reviewed: Yes I reviewed the patient's lab results. Lab results narrative: CBC showed leukocytosis at 15.8 BMP was unremarkable Troponin was elevated at 3.42 Result diagrams: 07/26/18 14:02 07/26/18 14:02 Lab Results 07/26/18 07/26/18 07/26/18 Range/Units 14:02 14:02 14:02 WBC 15.8 H (4.3-11.1) K/mcL RBC 4.62 (4.19-5.50) M/mcL Hgb 13.3 (12.9-16.9) g/dL Hct 41.9 (37.5-50.1) % MCV 90.7 (83.0-100.0) fL MCH 28.8 (28.0-33.3) pg MCHC 31.7 (31.6-35.5) g/dL RDW 12.9 (11.5-14.5) % Plt Count 336 (140-400) K/mcL MPV 9.6 (9.4-12.4) fL Immature Gran % 0.4 (0-4) % Seg Neutrophils % 82.6 % Lymphocytes % 7.4 % Monocytes % 9.4 % Eosinophils % 0.0 % Basophils % 0.2 % Neutrophils # 13.0 H (1.6-8.9) K/mcL Lymphocytes # 1.2 (0.6-4.6) K/mcL Monocytes # 1.5 H (0.0-1.3) K/mcL Eosinophils # 0.0 (0.0-0.6) K/mcL Basophils # 0.0 (0.0-0.2) K/mcL PT 10.1 (9.4-12.1) Seconds INR 0.9 APTT 27.7 (26.0-36.0) Seconds Sodium 136 (136-145) mEq/L Potassium 4.1 (3.5-5.1) mEq/L Chloride 93 L (98-107) mEq/L Carbon Dioxide 37 H (23-29) mEq/L BUN 19 (8-23) mg/dL Creatinine 0.86 (0.70-1.30) mg/dL Est GFR ( Amer) > 60 (> 60) Est GFR (Non-Af Amer) > 60 (> 60) BUN/Creatinine Ratio 22 (6-26) Glucose 119 H (70-105) mg/dL Calculated Osmolality 285 (280-300) Calcium 10.0 (8.6-10.3) mg/dL Troponin I 3.42 H* (< 0.04) ng/mL - EKG Data EKG #1 EKG attestation: Yes I reviewed and interpreted this EKG. 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
[2018-07-26] MEDS ORDERED: *HR* Heparin 5,000 UNIT/ML VIAL IVP ONE (13:57)
[2018-07-26] MEDS ORDERED: *HR* Heparin 5,000 UNIT/ML VIAL IVP PRN ×2 (13:57)
[2018-07-26 14:54] LABS: Basophils % 0.2 %; Hematocrit 41.9 % (37.5-50.1); Hemoglobin 13.3 g/dL (12.9-16.9); Immature Granulocytes % 0.4 % (0-4); Lymphocytes # 1.2 K/mcL (0.6-4.6); Lymphocytes % 7.4 %; Mean Corpuscular HGB Conc 31.7 g/dL (31.6-35.5); Mean Corpuscular Hemoglobin 28.8 pg (28.0-33.3); Mean Corpuscular Volume 90.7 fL (83.0-100.0); Mean Platelet Volume 9.6 fL (9.4-12.4); Monocytes # 1.5 K/mcL (0.0-1.3); Monocytes % 9.4 %; Platelet Count 336 K/mcL (140-400); Red Blood Count 4.62 M/mcL (4.19-5.50); Red Cell Distribution Width 12.9 % (11.5-14.5); Segmented Neutrophils % 82.6 %
[2018-07-26 15:01] LABS: INR 0.9; Prothrombin Time 10.1 Seconds (9.4-12.1)
[2018-07-26 15:04] LABS: Activated Partial Thrombo Time 27.7 Seconds (26.0-36.0)
[2018-07-26 15:14] LABS: BUN/Creatinine Ratio 22 (6-26); Blood Urea Nitrogen 19 mg/dL (8-23); Carbon Dioxide 37 mEq/L (23-29); Chloride 93 mEq/L (98-107); Glucose 119 mg/dL (70-105); Osmolality,Calculated 285 (280-300); Potassium 4.1 mEq/L (3.5-5.1); Sodium 136 mEq/L (136-145); eGFR For Non-African Americans > 60 (> 60)
[2018-07-26 15:21] LABS: Troponin I 3.42 ng/mL (< 0.04)
[2018-07-26] MEDS: Heparin 25,000 UNIT/500 ML D5W 25,000 UNIT/500 ML BAG IVC SCH (16:04)
[2018-07-26] MEDS ORDERED: Naloxone 0.4 MG/ML INJ IVP PRN (16:30)
--- NOTE | 2018-07-26 16:47 | Internal Med History&Physical ---
Date of Encounter: 07/26/18 Time of Encounter: 16:27 Internal Medicine - H&P: HPI Chief complaint: NSTEMI Admitted From: Emergency Dept History of present illness: Mr. Hu is a 88 year old male with history of advanced COPD on 2 L home oxygen during daytime and 3 L at night was sent to [facility] ER from the [facility] with concern of elevated troponin. As per patient he felt burning in the stomach and chest yesterday after having heavy meal that lasted to evening but today morning got worse therefore decided to go to [facility]. In [place] ER troponin was elevated more than 3, EKG with no acute ST-T elevation but noticed enlarged T-wave in ANTERIOR LEAD, and ST depression in lead 1 and aVL V5 V6 ,RBBB. Cardiac weight-based heparin drip was started in the ER. Patient also had elevated white count, chest x-ray with no acute finding is except COPD like changes. ER physician called on-call hospitalists for inpat ient admission with diagnosis of NST IL. During my assessment patient denies chest pain but still had chest burning-better Patient denies fever chills nausea vomiting headache dizziness abdominal pain urinary or bowel complaint. Patient has chronic shortness of breath due to advanced COPD and recently he noticed white sputum with slight worsening of shortness of breath therefore he started prednisone 20 mg daily for possible COPD flareup x2-3 days,as he was advised by PCP to take as needed basis. Patient generally ambulated to wheelchair as cannot ambulate due to him getting shots in the knees. Power of contract attorney-his Past Med Surg Social Fam HX - Past Medical History Medical history: arthritis, hypertension, COPD Additional medical history: o2 dependent, BPH, pressure sore of left buttocks, emphysema, pulmonary HTN, right BBB, DJD of maxwell knees, OA Psychiatric history: no psych history - Past Surgical History Surgical History: appendectomy, tonsilectomy - Social History Smoking Status: Former smoker Smokeless Tobacco Status: No Alcohol use: none Drug use: none - Family History Father Living Status: Hx Family Cardiac Disorders: Yes ([place]) Hx Family Respiratory Disorders: No Hx Family Cancer: Yes (Prostate Cancer) Hx Family GI Disorders: No Hx Family Endocrine Disorder: No Internal Medicine - H&P: Meds Albuterol Neb [Proventil Neb] 2.5 mg IH Q4HR PRN 04/10/18 [History] Albuterol Sulfate [Albuterol Inhaler] 2 puff IH Q6HR PRN 04/10/18 [History] Aloe Vera 10,000 mg PO BID 04/10/18 [History] Aspirin [Lo-Dose Aspirin EC] 81 mg PO DAILY 04/10/18 [History] Budesonide/Formoterol 160/4.5 [Symbicort 160/4.5] 2 puff IH BIDR 04/10/18 [History] Calcium Carbonate [Calcium] 500 mg PO BID 04/10/18 [History] Cholecalciferol (D-3) [Vitamin D] 5,000 unit PO DAILY 04/10/18 [History] Finasteride [Proscar] 5 mg PO DAILY 04/10/18 [History] Furosemide [Lasix] 20 mg PO DAILY 04/10/18 [History] Lung Support 650 mg PO TID 04/10/18 [History] Potassium Chloride [K-Tab ER] 20 meq PO DAILY 04/10/18 [History] Prostate 9 Complex 1 tab PO DAILY 04/10/18 [History] Sodium Chloride for inhalation [Sodium Chloride, Saline 15 Ml 15 Ml] 2 spr NS TID 04/10/18 [History] Tamsulosin [Flomax] 0.4 mg PO DAILY 04/10/18 [History] Tiotropium [Spiriva] 18 mcg IH 0700 04/10/18 [History] Vitamin E Acid Succinate [Vitamin E] 400 units PO DAILY 04/10/18 [History] Guaifenesin 400 mg PO Q8H PRN 07/26/18 [History] Lactobacillus [Culturelle] 1 cap PO BID 07/26/18 [History] Omeprazole [PriLOSEC] 20 mg PO DAILY 07/26/18 [History] l Gasseri/B Bifidum/B Longum [eCurv Capsule] 1 cap PO DAILY 1 09/25/17 [History] predniSONE [PredniSONE] 20 mg PO DAILY PRN 07/26/18 [History] Allergy/AdvReac Type Severity Reaction Status Date / Time Amoxicillin [From Augmentin] Allergy Unknown See Verified 07/26/18 16:06 Comments cefuroxime Allergy Unknown See Verified 07/26/18 16:06 Comments clavulanic acid Allergy Unknown See Verified 11/24/18 16:06 [From Augmentin] Comments ciprofloxacin [From Cipro] Allergy See Verified 07/26/18 16:06 Comments All Systems PM: A 10-system review of systems was performed and is negative for pertinent findings except as documented above in the HPI. - Constitutional Vitals: Temp Pulse Resp BP Pulse Ox 98.1 F 93 18 136/76 97 07/26/18 13:37 07/26/18 16:06 07/26/18 16:06 07/26/18 16:06 07/26/18 16:06 Exam: General appearance: No acute distress, A&O X 3, obese. 2 L oxygen by nasal c annula. Son at bedside Head exam: Atraumatic Eye exam: EOMI, PERRLA ENT exam: Moist oral mucosa, hard of hearing, edentulous Neck nontender, supple Respiratory exam: Few scattered rhonchi bilaterally but no crackles Cardiovascular exam: Regular rate and rhythm, no systolic murmur Abdominal exam: Soft, nontender, nondistended, positive bowel sounds Extremities exam: No calf tenderness, +1 pedal edema bilaterally Skin-dry and warm Neurological exam: CN II-XII intact, no focal deficits. No facial droop. Normal speech. Internal Med - H&P Results - Labs CBC & Chem 7: 07/26/18 14:02 07/26/18 14:02 Labs: Short CBC 07/26/18 Range/Units 14:02 WBC 15.8 H (4.3-11.1) K/mcL Hgb 13.3 (12.9-16.9) g/dL Hct 41.9 (37.5-50.1) % Plt Count 336 (140-400) K/mcL Neutrophils # 13.0 H (1.6-8.9) K/mcL BMP 07/26/18 14:02 Sodium 136 Potassium 4.1 Chloride 93 L Carbon Dioxide 37 H BUN 19 Creatinine 0.86 Glucose 119 H Calcium 10.0 Cardiac Enzymes 07/26/18 Range/Units 14:02 Troponin I 3.42 H* (< 0.04) ng/mL - Impressions ITS Impressions Chest X-Ray 07/26/18 13:40 IMPRESSION: 1. No radiographic evidence of acute cardiopulmonary process. 2. Findings suggestive of underlying COPD. D/ / Chris Crooks MD / Chris Crooks MD Interpreting Provider: Chris Crooks MD - Assessment and plan (1) Non-ST elevation [place] (NSTEMI) Current Visit: Yes Status: Acute Assessment and plan: Denies typical chest pain or angina equivalent symptoms. Multiple risk factors are chronic remote a smoker, family history of CAD in his dad in late 60s. Patient had echo done in April 2018 with preserved ejection fraction 60-65% with mild LVDD. Elevated troponin with ST depression in anterior lateral lead. Will admit patient on telemetry bed, serial troponin, aspirin, beta chris with hold parameters, nitrate prn, statin, cardiac weight-based heparin drip, oxygen . Echocardiogram ordered and consulted cardiology. (2) Leukocytosis Current Visit: No Status: Acute Assessment and plan: Could be reactionary as patient on his steroid. Does not have sign and symptom of underlying infection source but order urine analysis. Chest x-ray with no acute finding. Patient does not appear in sepsis. Qualifiers: Leukocytosis type: unspecified Qualified Code(s): D72.829 - Elevated white blood cell count, unspecified (3) COPD (chronic obstructive pulmonary disease) Current Visit: No Status: Acute Assessment and plan: Possibility of COPD flare up. Patient is already taking prednisone 20 mg for last 3 days. Solu-Medrol 60 mg every 8 hours, DuoNeb ordered. Continue home oxygen. Zithromax is started for possible bronchitis. Continue to monitor. Qualifiers: COPD type: unspecified COPD Qualified Code(s): J44.9 - Chronic obstructive pulmonary disease, unspecified (4) DVT prophylaxis Current Visit: No Status: Acute Assessment and plan: Patient is on heparin drip - Time Spent With Patient Total time spent is greater than 50% in coordination of care (as documented) at patient's floor/unit and/or counseling patient: 25 - 35 minutes
[2018-07-26] MEDS ORDERED: Ondansetron 4 MG/2 ML VIAL IVP PRN (16:51)
[2018-07-26] MEDS ORDERED: Nitroglycerin 0.4 MG TAB.SUBL SL PRN (16:51)
[2018-07-26 17:04] LABS: Magnesium 2.3 mg/dL (1.6-2.6)
[2018-07-26] MEDS: Azithromycin 500 MG in D5% in Water 250 ML IVPB SCH (17:58)
[2018-07-26] MEDS ORDERED: Budesonide/Formoterol 160/4.5 1 PUFF INH IH SCH ×2 (17:59→22:00)
[2018-07-26] MEDS: MethylPREDNISolone 40 MG/ML VIAL IVP SCH ×2 (18:04→23:56)
[2018-07-26 18:34] LABS: Bilirubin,Urine Negative (Negative); Blood,Urine Negative (Negative); Clarity,Urine Clear (Clear); Color,Urine Yellow (Yellow); Glucose,Urine (UA) Normal (Normal); Ketones,Urine Negative (Negative); Leukocyte Esterase,Urine Negative (Negative); Nitrite,Urine Negative (Negative); PH,Urine 7.5 pH Units (5.0-8.0); Protein,Urine Trace mg/dL (Neg-Trace); Specific Gravity,Urine 1.017 (1.010-1.025); Urobilinogen,Urine Normal (Normal)
[2018-07-26 18:36] LABS: Bacteria,Urine None Seen per hpf (None-Few); Hyaline Casts,Urine None Seen per lpf (None-Few); Squamous Epithelial Cell,Urine Moderate per lpf (None-Few); WBC,Urine 0-3 per hpf (0-3)
[2018-07-26] MEDS ORDERED: Albuterol 2.5 MG/3 ML NEBULIZER IH PRN (18:45)
[2018-07-26] MEDS: Budesonide/Formoterol 160/4.5 1 PUFF INH IH SCH (18:49)
[2018-07-26] MEDS: Albuterol 2.5 MG/3 ML NEBULIZER IH SCH ×2 (20:03→22:39)
[2018-07-27] MEDS ORDERED: Simethicone 80 MG TAB.CHEW PO PRN (02:54)
[2018-07-27] MEDS: Albuterol 2.5 MG/3 ML NEBULIZER IH SCH ×6 (03:36→23:44)
[2018-07-27 04:39] LABS: Basophils % 0.2 %; Hematocrit 40.3 % (37.5-50.1); Hemoglobin 12.8 g/dL (12.9-16.9); Immature Granulocytes % 0.5 % (0-4); Lymphocytes # 0.6 K/mcL (0.6-4.6); Lymphocytes % 4.3 %; Mean Corpuscular HGB Conc 31.8 g/dL (31.6-35.5); Mean Corpuscular Hemoglobin 28.9 pg (28.0-33.3); Mean Platelet Volume 9.8 fL (9.4-12.4); Monocytes # 0.3 K/mcL (0.0-1.3); Monocytes % 2.1 %; Neutrophils # 11.9 K/mcL (1.6-8.9); Platelet Count 324 K/mcL (140-400); Red Blood Count 4.43 M/mcL (4.19-5.50); Red Cell Distribution Width 12.8 % (11.5-14.5); Segmented Neutrophils % 92.9 %
[2018-07-27 04:57] LABS: BUN/Creatinine Ratio 21 (6-26); Blood Urea Nitrogen 18 mg/dL (8-23); Calcium 9.4 mg/dL (8.6-10.3); Carbon Dioxide 36 mEq/L (23-29); Chloride 94 mEq/L (98-107); Chol/HDL Ratio 2.3 (0-4.9); Cholesterol 188 mg/dL (< 200); Glucose 193 mg/dL (70-105); HDL Cholesterol 83 mg/dL (40-59); LDL Cholesterol,Calculated 94 mg/dL (0-99); Osmolality,Calculated 287 (280-300); Potassium 4.4 mEq/L (3.5-5.1); Sodium 135 mEq/L (136-145); Triglycerides 54 mg/dL (< 150); eGFR For Non-African Americans > 60 (> 60)
[2018-07-27] MEDS: MethylPREDNISolone 40 MG/ML VIAL IVP SCH ×2 (07:56→16:26)
[2018-07-27] MEDS: Aspirin 81 MG TAB.CHEW PO SCH (07:56)
[2018-07-27] MEDS: Budesonide/Formoterol 160/4.5 1 PUFF INH IH SCH ×2 (08:01→20:27)
--- NOTE | 2018-07-27 10:11 | Cardiology Consult Note ---
Addendum entered and electronically signed by Talia Gallegos MD 07/27/18 12:35: I have personally performed a face to face evaluation on this patient. I have reviewed and agree with the care plan. History and Exam by me shows: Pt seen/evaluated. No recurrent symptoms overnight. Had long discussion with patient- pt prefers initial course of aggressive medical therapy rather than invasive evaluation via diagnostic cardiac catheterization. Pt states will discuss with and make final decision after discussing with her. Continue aggressive medical therapy- will start Plavix, continue beta blockade. Original Note: Date of Encounter: 07/27/18 Time of Encounter: 09:00 Assessment and Plan (1) Non-ST elevation [place] (NSTEMI) Current Visit: Yes Status: Acute Per cardiology: -NSTEMI, peak troponin 3.42, now downtrending -ECG with no acute ischemic changes. -Denies current chest pain/burning. Has PRN nitro ordered. -TTE pending. -ON asa, statin, BB, heparin drip. PRN nitro. -Of note, patient is DNR-CCA. Discussed at length with patient regarding LHC versus medical management. At this time, patient is leaning towards medical management, however he wishes to discuss with his prior to making a final decision. -Continue heparin drip for 24-48 hours. -Will make NPO after midnight in case he desires invasive cardiac evaluation. -Agree with TTE. (2) Chest pain Current Visit: Yes Status: Acute Per cardiology: -See NSTEMI as above. Qualifiers: Chest pain type: chest pain due to myocardial ischemia Ischemic chest pain type: unstable angina pectoris Qualified Code(s): I20.0 - Unstable angina Discussion w patient/family: The assessment and plan as outlined above was discussed with the patient and/or family members who expressed understanding and agreement. All questions were a nswered. Thank you for involving us in the care of your patient. Please call with any questions. Discussed and reviewed with Dr.Jennifer Gallegos. History of Present Illness Consult date: 07/26/18 Requesting physician: Megan Gramajo Consult reason: NSTEMI Chief complaint: chest pain History of present illness: Mr. Hu is a 88 year old male with a relevant past medical history of COPD, HTN, arthritis who presented to [facility] initially for "in digestion." Patient states he had sudden onset of chest burning after eating snacks at his house. States pain did not go away so he presented to [place]. Had elevated troponin and was transferred to [facility]. Patient denies current chest pain/indigestion. States shortness of breath is about baseline. Past Med Surg Social Fam HX - Past Medical History Attestation: Yes The following information was validated with the patient. Source: patient, old records reviewed Medical history: arthritis, hypertension, COPD Additional medical history: o2 dependent, BPH, pressure sore of left buttocks, emphysema, pulmonary HTN, right BBB, DJD of maxwell knees, OA Psychiatric history: no psych history - Past Surgical History Surgical History: appendectomy, tonsilectomy - Social History Smoking Status: Former smoker Smokeless Tobacco Status: No Alcohol use: none Drug use: none - Family History Father Living Status: Hx Family Cardiac Disorders: Yes (DE) Hx Family Respiratory Disorders: No Hx Family Cancer: Yes (Prostate Cancer) Hx Family GI Disorders: No Hx Family Endocrine Disorder: No Medications and Allergies Albuterol Neb [Proventil Neb] 2.5 mg IH Q4HR PRN 04/10/18 [History] Albuterol Sulfate [Albuterol Inhaler] 2 puff IH Q6HR PRN 04/10/18 [History] Aloe Vera 10,000 mg PO BID 04/10/18 [History] Aspirin [Lo-Dose Aspirin EC] 81 mg PO DAILY 04/10/18 [History] Budesonide/Formoterol 160/4.5 [Symbicort 160/4.5] 2 puff IH BIDR 04/10/18 [History] Calcium Carbonate [Calcium] 500 mg PO BID 04/10/18 [History] Cholecalciferol (D-3) [Vitamin D] 5,000 unit PO DAILY 04/10/18 [History] Finasteride [Proscar] 5 mg PO DAILY 04/10/18 [History] Furosemide [Lasix] 20 mg PO DAILY 04/10/18 [History] Lung Support 650 mg PO TID 04/10/18 [History] Potassium Chloride [K-Tab ER] 20 meq PO DAILY 04/10/18 [History] Prostate 9 Complex 1 tab PO DAILY 04/10/18 [History] Sodium Chloride for inhalation [Sodium Chloride, Saline 15 Ml 15 Ml] 2 spr NS TID 04/10/18 [History] Tamsulosin [Flomax] 0.4 mg PO DAILY 04/10/18 [History] Tiotropium [Spiriva] 18 mcg IH 0700 04/10/18 [History] Vitamin E Acid Succinate [Vitamin E] 400 units PO DAILY 04/10/18 [History] Guaifenesin 400 mg PO Q8H PRN 07/26/18 [History] Lactobacillus [Culturelle] 1 cap PO BID 07/26/18 [History] Omeprazole [PriLOSEC] 20 mg PO DAILY 07/26/18 [History] l Gasseri/B Bifidum/B Longum [[employer] Capsule] 1 cap PO DAILY 07/26/18 [History] predniSONE [PredniSONE] 20 mg PO DAILY PRN 07/26/18 [History] Allergy/AdvReac Type Severity Reaction Status Date / Time Amoxicillin [From Augmentin] Allergy Unknown See Verified 07/26/18 16:06 Comments cefuroxime Allergy Unknown See Verified 07/26/18 16:06 Comments clavulanic acid Allergy Unknown See Verified 07/26/18 16:06 [From Augmentin] Comments ciprofloxacin [From Cipro] Allergy See Verified 07/26/18 16:06 Comments All Systems Review: The remainder of the systems were reviewed and are negative - Cardiovascular Cardiovascular: as per HPI, chest pain at rest Physical Examination Vital Signs, Last 4 Hours Temp Pulse Resp BP Pulse Ox 07/27/18 08:03 18 91 07/27/18 06:31 98.8 F 80 18 103/61 94 General: Conversant, No Apparent Distress HEENT: Atraumatic, Normocephaly, Mucus Membranes Moist Neck: No JVD, Normal carotid pulses Cardiac: Reg Rate and Rhythm, Normal S1 and S2, No Murmur Lungs: Normal Breath Sounds, No Wheeze, Rales, Rhonchi Neuro: Alert and responsive, No focal deficits noted Abdomen: Soft, Non-Tender Skin: No rashes noted on visualized skin Musculoskeletal: No Chest Wall Tenderness Extremities: No Clubbing, No Cyanosis, No Edema, Normal Pulses Results 07/27/18 04:24 07/27/18 04:24 Lab Results Impressions Chest X-Ray 07/26/18 13:40 IMPRESSION: 1. No radiographic evidence of acute cardiopulmonary process. 2. Findings suggestive of underlying COPD. D/ / Chris Crooks MD / Chris Crooks MD Interpreting Provider: Chris Crooks MD Active Medications Albuterol Sulfate (Proventil Neb) 2.5 mg IH [id number] [facility]; Protocol Stop: 01/25/19 19:01 Last Admin: 07/27/18 08:01 Dose: 2.5 mg Aspirin (Aspirin) 81 mg PO DAILY [facility] Stop: 01/26/19 09:01 Last Admin: 07/27/18 07:56 Dose: 81 mg Atorvastatin Calcium (Lipitor) 40 mg PO HS [facility] Stop: 01/25/19 21:01 Last Admin: 07/26/18 20:00 Dose: Not Given Budesonide/Formoterol Fumarate (Symbicort) 2 puff IH BIDR [facility]; Protocol Stop: 01/25/19 22:01 Last Admin: 07/27/18 08:01 Dose: 2 puff Heparin Sodium (Porcine) (Heparin) 4,000 unit IVP Q6HR PRN PRN Reason: SEE COMMENTS Stop: 01/25/19 13:58 Heparin Sodium (Porcine) (Heparin) 2,000 unit IVP Q6H PRN PRN Reason: SEE COMMENTS Stop: 01/25/19 13:58 Heparin Sodium/Dextrose (Heparin 25,000 Unit/500 Ml D5w) 25,000 unit in 500 mls @ 17.255 mls/hr IVC .Q24H [facility]; Protocol Stop: 01/25/19 14:01 Last Titration: 07/27/18 05:36 Dose: 12 unit/kg/hr, 17.255 mls/hr Azithromycin 500 mg/ Dextrose 250 mls @ 252 mls/hr IVPB Q24H [facility] Stop: 01/25/19 17:01 Last Admin: 07/26/18 17:58 Dose: 252 mls/hr Methylprednisolone (Solu-Medrol) 40 mg IVP Q8HR [facility] Stop: 01/25/19 17:16 Last Admin: 07/27/18 07:56 Dose: 40 mg Metoprolol Tartrate (Lopressor) 25 mg PO BID [facility] Stop: 01/25/19 21:01 Last Admin: 07/27/18 07:56 Dose: 25 mg Naloxone HCl (Narcan) 0.4 mg IVP Q2MIN PRN PRN Reason: SEE COMMENTS Stop: 01/25/19 16:31 Nitroglycerin (Nitroglycerin) 0.4 mg SL Q5MIN PRN PRN Reason: Chest Pain Stop: 01/25/19 16:52 Ondansetron HCl (Zofran) 4 mg IVP Q8HR PRN PRN Reason: Nausea And Vomiting Stop: 01/25/19 16:52 Last Admin: 07/27/18 02:59 Dose: 4 mg Polyethylene Glycol (Miralax) 17 gm PO BID PRN PRN Reason: Constipation Stop: 01/25/19 20:24 Last Admin: 07/27/18 03:05 Dose: 17 gm Simethicone (Gas-X) 80 mg PO TID PRN PRN Reason: Dyspepsia Stop: 01/26/19 02:55 Laboratory Tests 07/26/18 07/26/18 07/27/18 14:02 20:18 04:24 WBC Hgb Creatinine Troponin I 3.42 H* 2.86 H* 2.41 H* 07/27/18 07/27/18 04:24 04:24 WBC 12.8 H Hgb 12.8 L Creatinine 0.86 Troponin I - Imaging and Cardiology Chest Xray: report reviewed Echo: pending - EKG Interpretation EKG results cardiology: personally reviewed (ECG with SR, RBBB, PVCs noted.), other (Telemetry reviewed with average HR previous 12 hours noted to be 84, SR. PVCs, couplets, one triplet noted. PACs noted. Short runs of atrial tachycardia noted, longest 5 beats.) Consult Discharge Plan - Plan [facility]errals: [facility] [Primary Care Provider] -
--- NOTE | 2018-07-27 10:37 | Internal Med Progress Note ---
Hospitalist Progress Note - Encounter Date of Encounter: 07/27/18 Time of Encounter: 10:35 - Subjective Interval History: Patient sitting comfortably on chair having breakfast while watching TV. Denied chest pain better shortness of breath but is still clear white sputum. Patient denies fever chills nausea vomiting headache dizziness abdominal pain urinary or bowel complaint. Review the lab and the diet consultant note. - Exam Vitals: Temp Pulse Resp BP Pulse Ox 98.8 F 80 18 103/61 91 07/27/18 06:31 07/27/18 06:31 07/27/18 08:03 07/27/18 06:31 07/27/18 08:03 Exam: General appearance: No acute distress, A&O X 3, obese. 2 L oxygen by nasal cannula. Head exam: Atraumatic Eye exam: EOMI, PERRLA ENT exam: Moist oral mucosa, hard of hearing, edentulous Neck nontender, supple Respiratory exam: Better air entry with decreased Few scattered rhonchi bilaterally but no crackles Cardiovascular exam: Regular rate and rhythm, no systolic murmur Abdominal exam: Soft, nontender, nondistended, positive bowel sounds Extremities exam: No calf tenderness, +1 pedal edema bilaterally -chronic as per pt Skin-dry and warm Neurological exam: CN II-XII intact, no focal deficits. No facial droop. Normal speech. - Assessment and Plan (1) Non-ST elevation [place] (NSTEMI) Current Visit: Yes Status: Acute Assessment and Plan: Extending down troponin level and no ischemic changes noticed in EKG. Echocardiogram pending. Lamp Developer's on board and discussed with patient [facility] versus medical management and patient will give final on Cerner after discussing with his but right now more inclined towards medical management. Patient denies typical chest pain or angina equivalent symptom but more like indigestion-like symptoms. Multiple risk factors are chronic remote a smoker, family history of CAD in his dad in late 60s. Patient had echo done in April 2018 with preserved ejection fraction 60-65% with mild LVDD. Continue telemetry bed, serial troponin, aspirin, beta chris with hold parameters, nitrate prn, statin, cardiac weight-based heparin drip, oxygen . (2) Leukocytosis Current Visit: No Status: Acute Assessment and Plan: Trending down. Could be reactionary as patient on his steroid. Does not have sign and symptom of underlying infection source. Urine analysis and Chest x- ray with no acute finding. Continue to monitor. Patient denies fever chills (3) COPD (chronic obstructive pulmonary disease) Current Visit: Yes Status: Acute Assessment and Plan: Likely COPD flare up. Patient is already taking prednisone 20 mg for last 3 days. Solu-Medrol 60 mg every 8 hours, DuoNeb ordered. Continue home oxygen. Zithromax is started for possible bronchitis. Will change to oral prednisone possibly tomorrow if continued to improve (4) DVT prophylaxis Current Visit: No Status: Acute Assessment and Plan: Patient is on heparin drip - Time Spent with Patient Total time spent is greater than 50% in coordination of care (as documented) at patient's floor/unit and/or counseling patient: 25 - 35 minutes Plan of Care Discussed with: patient (Discussed with nursing staff about plan of care) Internal Medicine: Result - Labs CBC & Chem 7: 07/27/18 04:24 07/27/18 04:24 Labs: Short CBC 07/26/18 07/27/18 Range/Units 14:02 04:24 WBC 15.8 H 12.8 H (4.3-11.1) K/mcL Hgb 13.3 12.8 L (12.9-16.9) g/dL Hct 41.9 40.3 (37.5-50.1) % Plt Count 336 324 (140-400) K/mcL Neutrophils # 13.0 H 11.9 H (1.6-8.9) K/mcL BMP 07/26/18 07/27/18 14:02 04:24 Sodium 136 135 L Potassium 4.1 4.4 Chloride 93 L 94 L Carbon Dioxide 37 H 36 H BUN 19 18 Creatinine 0.86 0.86 Glucose 119 H 193 H Calcium 10.0 9.4 Cardiac Enzymes 07/26/18 07/26/18 07/27/18 Range/Units 14:02 20:18 04:24 Troponin I 3.42 H* 2.86 H* 2.41 H* (< 0.04) ng/mL Urine 07/26/18 Range/Units 18:10 Urine Color Yellow (Yellow) Urine Clarity Clear (Clear) Urine pH 7.5 (5.0-8.0) pH Units Ur Specific [place] 1.017 (1.010-1.025) Urine Protein Trace (Neg-Trace) mg/dL Urine Glucose (UA) Normal (Normal) mg/dL - ABG Interpretation ABG results: PT/INR, D-dimer PT 10.1 Seconds (9.4-12.1) 07/26/18 14:02 - Impressions Impressions Chest X-Ray 07/26/18 13:40 IMPRESSION: 1. No radiographic evidence of acute cardiopulmonary process. 2. Findings suggestive of underlying COPD. D/ / Chris Crooks MD / Chris Crooks MD Interpreting Provider: Chris Crooks MD Consult Discharge Plan - Plan Referrals: [facility] [Primary Care Provider] - (2) Leukocytosis Qualifiers: Leukocytosis type: unspecified Qualified Code(s): D72.829 - Elevated white blood cell count, unspecified (3) COPD (chronic obstructive pulmonary disease) Qualifiers: COPD type: unspecified COPD Qualified Code(s): J44.9 - Chronic obstructive pulmonary disease, unspecified
[2018-07-27] MEDS ORDERED: GuaiFENesin/Codeine Oral Soln 5 ML UDC PO PRN (11:44)
--- NOTE | 2018-07-27 12:47 | Event Note ---
Date of Encounter: 07/27/18 Time of Encounter: 12:45 - Cardiology Event Note Patient's at bedside. Discussed at length with patient's regarding NSTEMI and LHC vs Medical management. Patient and are both in agreement for medical management. Continue heparin drip, asa, plavix, statin, BB.
[2018-07-27] MEDS: Azithromycin 500 MG in D5% in Water 250 ML IVPB SCH (16:26)
[2018-07-27] MEDS: Heparin 25,000 UNIT/500 ML D5W 25,000 UNIT/500 ML BAG IVC SCH (21:27)
[2018-07-28] MEDS: MethylPREDNISolone 40 MG/ML VIAL IVP SCH ×2 (00:16→08:41)
[2018-07-28] MEDS: Albuterol 2.5 MG/3 ML NEBULIZER IH SCH ×7 (04:03→23:54)
[2018-07-28] MEDS: Budesonide/Formoterol 160/4.5 1 PUFF INH IH SCH ×2 (07:20→20:03)
[2018-07-28] MEDS: Aspirin 81 MG TAB.CHEW PO SCH (08:41)
--- NOTE | 2018-07-28 08:57 | Cardiology Progress Note ---
Date of Encounter: 07/28/18 Time of Encounter: 08:30 Assessment and Plan (1) Non-ST elevation [place] (NSTEMI) Current Visit: Yes Status: Acute Per cardiology: -NSTEMI, peak troponin 3.42, now downtrending -ECG with no acute ischemic changes. -Denies current chest pain/burning. Has PRN nitro ordered. Reports some indigestion this am, different from previous chest pain. -TTEwith LVEF preserved, no segmental wall motion abnormalities. -ON asa, statin, BB, heparin drip. PRN nitro. -Of note, patient is DNR-CCA. Discussed at length with patient and regarding LHC versus medical management. Patient and are in agreement for medical management. -Continue heparin drip for 24-48 hours (ideally 48 hours if patient tolerates, which would be today at 2100). -Can consider addition of imdur if patient has recurrence of chest pain. -Cardiology will sign off. Patient does not wish to follow with cardiology outpatient. Follows at [facility]. (2) Chest pain Current Visit: Yes Status: Acute Per cardiology: -See NSTEMI as above. Qualifiers: Chest pain type: chest pain due to myocardial ischemia Ischemic chest pain type: unstable angina pectoris Qualified Code(s): I20.0 - Unstable angina Discussion w patient/family: The assessment and plan as outlined above was discussed with the patient and/or family members who expressed understanding and agreement. All questions were answered. Thank you for involving us in the care of your patient. Please call wi th any questions. Discussed and reviewed with . Subjective Principal diagnosis: NSTEMI Interval history: Patient states he was doing well until eating breakfast this morning. States currently having indigestion, different from chest pain from Saturday. Objective Vital Signs, Last 4 Hours Temp Pulse Resp BP Pulse Ox 07/28/18 07:48 98.0 F 79 19 108/67 95 07/28/18 07:21 18 96 General: Conversant, No Apparent Distress HEENT: Atraumatic, Normocephaly, Mucus Membranes Moist Neck: No JVD, Normal carotid pulses Cardiac: Reg Rate and Rhythm, Normal S1 and S2, No Murmur Lungs: Other (Lung sounds diminished throughout. ) Neuro: Alert and responsive, No focal deficits noted Abdomen: Soft, Non-Tender Skin: No rashes noted on visualized skin Musculoskeletal: No Chest Wall Tenderness Extremities: No Clubbing, No Cyanosis, No Edema, Normal Pulses Results 07/27/18 04:24 07/27/18 04:24 Impressions Echocardiogram 07/27/18 16:40 Impressions: LVEF 60%. Normal LV chamber size, wall thickness and function. Mild left ventricular diastolic dysfunction. Normal right ventricular structure and function. No evidence of pulmonary hypertension. No significant valvular dysfunction. Left Ventricular Wall Motion: Rest Echo Findings All wall segments showed normal motion. Findings: Study Quality * Technically sub-optimal due to poor echocardiographic windows. ECG Findings * Normal sinus rhythm. Left Ventricle * LVEF 60%. * Normal LV chamber size, wall thickness and function. * Mild left ventricular diastolic dysfunction. Right Ventricle * Normal right ventricular structure and function. Left Atrium * Normal left atrial size. Right Atrium * Normal right atrial size. Aortic Valve * Aortic valve not well visualized. * Grossly, calcified aortic valve leaflets. * No aortic regurgitation. * No aortic stenosis. Mitral Valve * Mild mitral annular calcification. * Trace mitral regurgitation. * No mitral stenosis. Tricuspid Valve * Normal tricuspid valve structure and function. * Trace tricuspid regurgitation. * No evidence of pulmonary hypertension. Pulmonic Valve * Pulmonic valve is not well visualized. * No pulmonic regurgitation. Aorta * Normally sized aortic root. Pericardium * The pericardium appears normal. IVC * The IVC is not well evaluated. Pulmonary Artery * Pulmonary artery not well visualized. Active Medications Albuterol Sulfate (Proventil Neb) 2.5 mg IH [id number] [facility]; Protocol Stop: 01/25/19 19:01 Last Admin: 07/28/18 07:20 Dose: 2.5 mg Aspirin (Aspirin) 81 mg PO DAILY [facility] Stop: 01/26/19 09:01 Last Admin: 07/28/18 08:41 Dose: 81 mg Atorvastatin Calcium (Lipitor) 40 mg PO HS [facility] Stop: 01/25/19 21:01 Last Admin: 07/27/18 20:15 Dose: Not Given Budesonide/Formoterol Fumarate (Symbicort) 2 puff IH BIDR [facility]; Protocol Stop: 01/25/19 22:01 Last Admin: 07/28/18 07:20 Dose: 2 puff Clopidogrel Bisulfate (Plavix) 75 mg PO DAILY [facility] Stop: 01/27/19 09:01 Last Admin: 07/28/18 08:41 Dose: 75 mg Guaifenesin/Codeine Phosphate (Robitussin W/Codeine) 5 ml PO Q8HR PRN; Protocol PRN Reason: Cough Stop: 01/26/19 11:45 Last Admin: 07/27/18 12:27 Dose: 5 ml Heparin Sodium (Porcine) (Heparin) 4,000 unit IVP Q6HR PRN PRN Reason: SEE COMMENTS Stop: 01/25/19 13:58 Heparin Sodium (Porcine) (Heparin) 2,000 unit IVP Q6H PRN PRN Reason: SEE COMMENTS Stop: 01/25/19 13:58 Heparin Sodium/Dextrose (Heparin 25,000 Unit/500 Ml D5w) 25,000 unit in 500 mls @ 17.255 mls/hr IVC .Q24H [facility]; Protocol Stop: 01/25/19 14:01 Last Titration: 07/28/18 06:13 Dose: 12 unit/kg/hr, 17.255 mls/hr Azithromycin 500 mg/ Dextrose 250 mls @ 252 mls/hr IVPB Q24H [facility] Stop: 01/25/19 17:01 Last Infusion: 07/28/18 07:26 Dose: Infused Methylprednisolone (Solu-Medrol) 40 mg IVP Q8HR [facility] Stop: 01/25/19 17:16 Last Admin: 07/28/18 08:41 Dose: 40 mg Metoprolol Tartrate (Lopressor) 25 mg PO BID [facility] Stop: 01/25/19 21:01 Last Admin: 07/28/18 08:41 Dose: 25 mg Naloxone HCl (Narcan) 0.4 mg IVP Q2MIN PRN PRN Reason: SEE COMMENTS Stop: 01/25/19 16:31 Nitroglycerin (Nitroglycerin) 0.4 mg SL Q5MIN PRN PRN Reason: Chest Pain Stop: 01/25/19 16:52 Ondansetron HCl (Zofran) 4 mg IVP Q8HR PRN PRN Reason: Nausea And Vomiting Stop: 01/25/19 16:52 Last Admin: 07/27/18 02:59 Dose: 4 mg Polyethylene Glycol (Miralax) 17 gm PO BID PRN PRN Reason: Constipation Stop: 01/25/19 20:24 Last Admin: 07/27/18 20:14 Dose: 17 gm Simethicone (Gas-X) 80 mg PO TID PRN PRN Reason: Dyspepsia Stop: 01/26/19 02:55 - Imaging and Cardiology Chest Xray: report reviewed Echo: report reviewed - EKG Interpretation EKG results cardiology: other (Telemetry reviewed with average HR previous 12 hours noted to be 81, SR. PVCs, PACs, short runs of atrial tachycardia.) Consult Discharge Plan - Plan Referrals: [facility] [Primary Care Provider] -
[2018-07-28] MEDS ORDERED: Famotidine 20 MG TABLET PO PRN (09:07)
--- NOTE | 2018-07-28 10:20 | Internal Med Progress Note ---
Hospitalist Progress Note - Encounter Date of Encounter: 07/28/18 Time of Encounter: 10:17 - Subjective Interval History: Patient sitting comfortably on chair . Denied chest pain better shortness of breath but is still clear white sputum. Patient denies fever chills nausea vomiting headache dizziness abdominal pain urinary or bowel complaint. Reviewed the lab and the solutions market consultant note. - Exam Vitals: Temp Pulse Resp BP Pulse Ox 98.0 F 79 19 108/67 95 07/28/18 07:48 07/28/18 07:48 07/28/18 07:48 07/28/18 07:48 07/28/18 07:48 Exam: General appearance: No acute distress, A&O X 3, obese. 2 L oxygen by nasal cannula. Head exam: Atraumatic Eye exam: EOMI, PERRLA ENT exam: Moist oral mucosa, hard of hearing, edentulous Neck nontender, supple Respiratory exam: Better air entry with no wz, rhonchi bilaterally Cardiovascular exam: Regular rate and rhythm, no systolic murmur Abdominal exam: Soft, nontender, nondistended, positive bowel sounds Extremities exam: No calf tenderness, +1 pedal edema bilaterally -chronic as per pt Skin-dry and warm Neurological exam: CN II-XII intact, no focal deficits. No facial droop. Normal speech. - Assessment and Plan (1) Non-ST elevation NE (NSTEMI) Current Visit: Yes Status: Acute Assessment and Plan: Extending down troponin level and no ischemic changes noticed in EKG. Echocard iogram with preserved LV function EF 60% mild 12 EVAN otherwise no acute finding. Photogrammetry Airplane Pilot's on board and discussed with patient and his about LHC versus medical management and they decided for medical management. Heparin drip will be stopped tonight. Continue medical management along with aspirin, Plavix. Plan to discharge patient possibly tomorrow. Will consider adding Imdur if and complaint of chest pain. (2) Leukocytosis Current Visit: No Status: Acute Assessment and Plan: Trending down. Could be reactionary as patient on his steroid. Does not have sign and symptom of underlying infection source. Urine analysis and Chest x- ray with no acute finding. Continue to monitor. Patient denies fever chills (3) COPD (chronic obstructive pulmonary disease) Current Visit: Yes Status: Acute Assessment and Plan: Likely COPD flare up. Patient is already taking prednisone 20 mg for last 3 days. Initially started Solu-Medrol 60 mg every 8 hours, DuoNeb ordered. Today will start IV Solu-Medrol and start prednisone 40 mg daily along with continuation of Zithromax. Continue home oxygen. Plan to discharge patient tomorrow. (4) DVT prophylaxis Current Visit: No Status: Acute Assessment and Plan: Patient is on heparin drip. - Time Spent with Patient Total time spent is greater than 50% in coordination of care (as documented) at patient's floor/unit and/or counseling patient: 25 - 35 minutes Plan of Care Discussed with: patient (Discussed plan of care with nurses) Internal Medicine: Result - Labs CBC & Chem 7: 07/27/18 04:24 07/27/18 04:24 - ABG Interpretation ABG results: PT/INR, D-dimer PT 10.1 Seconds (9.4-12.1) 07/26/18 14:02 - Impressions Impressions Echocardiogram 07/27/18 16:40 Impressions: LVEF 60%. Normal LV chamber size, wall thickness and function. Mild left ventricular diastolic dysfunction. Normal right ventricular structure and function. No evidence of pulmonary hypertension. No significant valvular dysfunction. Left Ventricular Wall Motion: Rest Echo Findings All wall segments showed normal motion. Findings: Study Quality * Technically sub-optimal due to poor echocardiographic windows. ECG Findings * Normal sinus rhythm. Left Ventricle * LVEF 60%. * Normal LV chamber size, wall thickness and function. * Mild left ventricular diastolic dysfunction. Right Ventricle * Normal right ventricular structure and function. Left Atrium * Normal left atrial size. Right Atrium * Normal right atrial size. Aortic Valve * Aortic valve not well visualized. * Grossly, calcified aortic valve leaflets. * No aortic regurgitation. * No aortic stenosis. Mitral Valve * Mild mitral annular calcification. * Trace mitral regurgitation. * No mitral stenosis. Tricuspid Valve * Normal tricuspid valve structure and function. * Trace tricuspid regurgitation. * No evidence of pulmonary hypertension. Pulmonic Valve * Pulmonic valve is not well visualized. * No pulmonic regurgitation. Aorta * Normally sized aortic root. Pericardium * The pericardium appears normal. IVC * The IVC is not well evaluated. Pulmonary Artery * Pulmonary artery not well visualized. Consult Discharge Plan - Plan [facility] Care Provider[facility] - ___ (2) Leukocytosis Qualifiers: Leukocytosis type: unspecified Qualified Code(s): D72.829 - Elevated white blood cell count, unspecified (3) COPD (chronic obstructive pulmonary disease) Qualifiers: COPD type: unspecified COPD Qualified Code(s): J44.9 - Chronic obstructive pulmonary disease, unspecified
[2018-07-28] MEDS: predniSONE 20 MG TABLET PO SCH (11:40)
[2018-07-28] MEDS ORDERED: Azithromycin 250 MG TABLET PO SCH (17:00)
--- NOTE | 2018-07-28 20:45 | Electrocardiograph Report ---
[address] [address] Test Date: 2018-07-26 Pat Name: Dru Hu Department: EXAM4 Room: 2A Gender: M Park Interpretive Specialist: : 1930 Requested By: Ras Henao Order Number: [id number] Reading MD: Vasu Chery Measurements Intervals [place] Rate: 94 P: 54 GA: 144 QRS: 87 QRSD: 142 T: 46 QT: 380 QTc: 476 Interpretive Statements Sinus tachycardia with PVCs and PACs Right bundle branch block Electronically Signed On 07-28-2018 20:43:16 EST by Vasu Chery
--- NOTE | 2018-07-28 20:46 | Electrocardiograph Report ---
[address] [address] Test Date: 2018-07-26 Pat Name: Dru Hu Department: EXAM4 Room: 2A Gender: M Second Operator: : 1930 Requested By: Megan Gramajo Order Number: [id number] Reading MD: Vasu Chery Measurements Intervals [place] Rate: 89 P: 44 DE: 145 QRS: 99 QRSD: 154 T: 50 QT: 389 QTc: 474 Interpretive Statements Sinus rhythm RBBB and LPFB Electronically Signed On 07-28-2018 20:44:34 EST by Vasu Chery
--- NOTE | 2018-07-28 21:24 | Electrocardiograph Report ---
[address] [address] Test Date: 2018-07-27 Pat Name: Dru Hu Department: 109 Room: [facility] Gender: M Nutritional Assistant: : 1930 Requested By: Megan Gramajo Order Number: [id number] Reading MD: Vasu Chery Measurements Intervals [place] Rate: 77 P: 72 MO: 150 QRS: 82 QRSD: 148 T: 40 QT: 401 QTc: 433 Interpretive Statements SINUS RHYTHM WITH OCCASIONAL VENTRICULAR PREMATURE COMPLEXES WITH OCCASIONAL SUPRAVENTRICULAR PREMATURE COMPLEXES RIGHT BUNDLE BRANCH BLOCK Electronically Signed On 07-28-2018 21:22:47 EST by Vasu Chery
[2018-07-29] MEDS: Albuterol 2.5 MG/3 ML NEBULIZER IH SCH ×3 (03:34→11:06)
[2018-07-29 06:55] LABS: BUN/Creatinine Ratio 30 (6-26); Blood Urea Nitrogen 25 mg/dL (8-23); Calcium 8.6 mg/dL (8.6-10.3); Carbon Dioxide 35 mEq/L (23-29); Chloride 94 mEq/L (98-107); Glucose 111 mg/dL (70-105); Osmolality,Calculated 283 (280-300); Sodium 134 mEq/L (136-145); eGFR For Non-African Americans > 60 (> 60)
[2018-07-29] MEDS: Heparin 25,000 UNIT/500 ML D5W 25,000 UNIT/500 ML BAG IVC SCH (07:13)
[2018-07-29] MEDS: Budesonide/Formoterol 160/4.5 1 PUFF INH IH SCH (07:38)
[2018-07-29 08:36] LABS: Basophils % 0.1 %; Eosinophils % 0.1 %; Hematocrit 39.3 % (37.5-50.1); Hemoglobin 12.3 g/dL (12.9-16.9); Immature Granulocytes % 0.6 % (0-4); Lymphocytes # 1.4 K/mcL (0.6-4.6); Lymphocytes % 9.9 %; Mean Corpuscular HGB Conc 31.3 g/dL (31.6-35.5); Mean Corpuscular Hemoglobin 28.8 pg (28.0-33.3); Mean Platelet Volume 9.9 fL (9.4-12.4); Monocytes # 1.1 K/mcL (0.0-1.3); Neutrophils # 11.3 K/mcL (1.6-8.9); Platelet Count 310 K/mcL (140-400); Red Blood Count 4.27 M/mcL (4.19-5.50); Segmented Neutrophils % 81.3 %
[2018-07-29] MEDS: predniSONE 20 MG TABLET PO SCH (10:11)
[2018-07-29] MEDS: Aspirin 81 MG TAB.CHEW PO SCH (10:12)
--- NOTE | 2018-07-29 10:52 | Discharge Summary ---
- NOTES TO OUTPATIENT PROVIDER Notes to Outpatient Provider: Follow with PCP at [place] in 2-3 days-follow with cardiology as per [place] physician. advice. Continue tapering his steroid as prescribed Orders not resulted at time of discharge: Pending orders 07/26/18 16:40 ECG 12 lead ECG [ECG] Routine Date of Encounter: 07/29/18 Time of Encounter: 10:49 - Discharge Diagnosis (1) Non-ST elevation MS (NSTEMI) Priority: Primary Status: Acute Assessment and Plan: Trending down troponin level and no ischemic changes noticed in EKG. Echocardiogram with preserved LV function EF 60% mild 12 EVAN otherwise no acute finding. Polysomnographic Technologist's on board and discussed with patient and his about LHC versus medical management and they decided for medical management. Heparin drip stopped last night after running 48 hour. Continue medical management along with aspirin, Plavix. (2) Leukocytosis Priority: Primary Status: Acute Assessment and Plan: Trending down. Could be reactionary as patient on his steroid. Does not have sign and symptom of underlying infection source. Urine analysis and Chest x- ray with no acute finding. Complete the Zithromax course for total 5 days Qualifiers: Leukocytosis type: unspecified Qualified Code(s): D72.829 - Elevated white blood cell count, unspecified (3) COPD (chronic obstructive pulmonary disease) Priority: Primary Status: Acute Assessment and Plan: COPD flare up. Improving clinically therefore will discharge patient on redness on 40 mg by mouth daily for total 5 days and 20 mg daily for next 5 days and further decision as per his PCP. Patient already has 2 days of 40 mg prednisone dose in the hospital. He will complete Zithromax course for total 5 days and had 4 doses already in the hospital and 5th dose will be on 07/30 2018. Qualifiers: COPD type: unspecified COPD Qualified Code(s): J44.9 - Chronic obstructive pulmonary disease, unspecified Hospital course: Mr. Hu is a 88 year old male patient got admitted for NST MS and COPD exacerbation. Polysomnographic Technologist was consulted who did discuss with patient and his in length about performing heart catheterization versus medical management and they opted for radical management. Heparin drip was continued for 48 hour and then is stopped. COPD with bronchitis was treated with IV steroid, DuoNeb, azithromycin. Patient continued to improve and 80 for the discharge. At the time of discharge patient denies any chest pain, improved shortness of breath back to baseline, saturating well on 2 L home oxygen by nasal cannula, tolerating oral diet. Patient will be discharged on tapering his steroid 40 mg prednisone daily for 5 days then 20 and Zithromax 1 more days on 1127 2017. [facility] Patient declined to follow production weigher at [place] as they offered. Discharge discussed with: patient, family, nurse - Time Spent with Patient Total time spent providing and/or coordinating discharge services: Less than 30 minutes - Discharge Medications Home Medications: Albuterol Neb [Proventil Neb] 2.5 mg IH Q4HR PRN 04/10/18 [History] Albuterol Sulfate [Albuterol Inhaler] 2 puff IH Q6HR PRN 04/10/18 [History] Aloe Vera 10,000 mg PO BID 04/10/18 [History] Aspirin [Lo-Dose Aspirin EC] 81 mg PO DAILY 04/10/18 [History] Budesonide/Formoterol 160/4.5 [Symbicort 160/4.5] 2 puff IH BIDR 04/10/18 [History] Calcium Carbonate [Calcium] 500 mg PO BID 04/10/18 [History] Cholecalciferol (D-3) [Vitamin D] 5,000 unit PO DAILY 04/10/18 [History] Finasteride [Proscar] 5 mg PO DAILY 04/10/18 [History] Furosemide [Lasix] 20 mg PO DAILY 04/10/18 [History] Lung Support 650 mg PO TID 04/10/18 [History] Potassium Chloride [K-Tab ER] 20 meq PO DAILY 04/10/18 [History] Prostate 9 Complex 1 tab PO DAILY 04/10/18 [History] Sodium Chloride for inhalation [Sodium Chloride, Saline 15 Ml 15 Ml] 2 spr NS TID 04/10/18 [History] Tamsulosin [Flomax] 0.4 mg PO DAILY 04/10/18 [History] Tiotropium [Spiriva] 18 mcg IH 0700 04/10/18 [History] Vitamin E Acid Succinate [Vitamin E] 400 units PO DAILY 04/10/18 [History] Guaifenesin 400 mg PO Q8H PRN 07/26/18 [History] Lactobacillus [Culturelle] 1 cap PO BID 07/26/18 [History] Omeprazole [PriLOSEC] 20 mg PO DAILY 07/26/18 [History] l Gasseri/B Bifidum/B Longum [Lobster Capsule] 1 cap PO DAILY 07/26/18 [History] predniSONE [PredniSONE] 20 mg PO DAILY PRN 07/26/18 [History] Allergies/Adverse Reactions: Allergy/AdvReac Type Severity Reaction Status Date / Time Amoxicillin [From Augmentin] Allergy Unknown See Verified 07/26/18 16:06 Comments cefuroxime Allergy Unknown See Verified 07/26/18 16:06 Comments clavulanic acid Allergy Unknown See Verified 07/26/18 16:06 [From Augmentin] Comments ciprofloxacin [From Cipro] Allergy See Verified 07/26/18 16:06 Comments Date of admission: 07/26/18 17:22 [facility] care physician: [facility] Consults: 07/26/18 16:40 Consult to Nurse Navigator [CONS] Routine Comment: 07/26/18 17:13 Consult to Order Make Up Clerk [CONS] Routine Reason for SW Consult: discharge planning, pt has home O2 and home health he states 07/27/18 07:21 Consult to Cardiology [CONS] Routine Comment: Consulting Provider: Cardiology [facility] Reason for Consult: NSTEMI Call Completed: Yes - Constitutional Vitals: Temp Pulse Resp BP Pulse Ox 97.7 F 74 20 128/69 92 07/29/18 07:49 07/29/18 07:49 07/29/18 07:49 07/29/18 07:49 07/29/18 07:49 Exam: General appearance: No acute distress, A&O X 3. 2 L oxygen by nasal cannula Eye exam: EOMI, PERRLA ENT exam: Moist oral mucosa Neck nontender, supple Respiratory exam: Clear to auscultation bilaterally, no crackles or wheezing Cardiovascular exam: Regular rate and rhythm, no systolic murmur Abdominal exam: Soft, nontender, nondistended, positive bowel sounds Extremities exam: No calf tenderness, +1 bilateral pedal edema Present-chronic Neurological exam: Grossly intact. - Patient Status Disposition: Home, Self-Care Condition: Good Overall status at discharge: patient is progressing back to baseline - Discharge Instructions Instructions: Myocardial Infarction (DC) [facility]: [facility] [Primary Care Provider[facility] - Forms: ED Satisfaction Letter - Diet and Activity Activity: increase activity as tolerated Diet: advance to your usual diet
[2018-07-29] MEDS ORDERED: Azithromycin 250 MG TABLET PO SCH (11:00)
[2018-07-29 11:05] VITALS: BP 102/57
[2018-07-29] MEDS ORDERED: *HR* Heparin 5,000 UNIT/ML VIAL SQ SCH (18:00)
== END 2018-07-29 12:33 | disposition home or self-care (01) | DRG 281 ==
LOC: EMEROOARM 13:32 → 2ANU 13:32
PROVIDERS: ADMIT Hospitalist; ATTEND Hospitalist